=== PATIENT | female | born 1995 | race African-American/Black ===

== ENCOUNTER 2021-04-01 15:02 | Outpatient (REF) | payer OTHER, SELFPAY ==
--- NOTE | ~2021-04-01 | XR_ITS ---
EXAMINATION: XR KNEE, LEFT CLINICAL INFORMATION: Sprain of unspecified site of left knee, initial encounter. COMPARISON: None TECHNIQUE: AP, bilateral oblique, and lateral views of the left knee. FINDINGS: There is no acute fracture or malalignment. There is a small joint effusion. There is no joint space narrowing. XR/XR knee LT 4V IMPRESSION: Small joint effusion. Otherwise, unremarkable radiographs.
== END 2021-04-01 15:03 | disposition home or self-care (01) ==
LOC: HO.HMGCX 15:02
PROVIDERS: Visit Provider Hospitalist
DX: S83.92XA Sprain of unspecified site of left knee, initial encounter (principal); W19.XXXA Unspecified fall, initial encounter; Y93.9 Activity, unspecified; Y92.9 Unspecified place or not applicable; Y99.8 Other external cause status
CPT/HCPCS: 73564

== ENCOUNTER 2023-05-15 11:10 | Inpatient (IN) | payer OTHER, SELFPAY ==
--- NOTE | ~2023-05-15 | XR_ITS ---
EXAMINATION: XR CHEST CLINICAL INFORMATION: Shortness of breath COMPARISON: None available. TECHNIQUE: 2 views of the chest were obtained. FINDINGS: The lungs are expanded and clear of acute process. Heart size and pulmonary vascularity is normal. There are median sternotomy sutures from previous intervention. No gross bony abnormality seen. XR/XR chest 2V IMPRESSION: Unremarkable chest examination.
--- NOTE | ~2023-05-15 | CT_ITS ---
EXAMINATION: CT ABDOMEN AND PELVIS WITH CONTRAST CLINICAL INFORMATION: Epigastric pain. History of pancreatitis. COMPARISON: None available. TECHNIQUE: Multidetector volumetric images were obtained from the superior aspect of the liver through the pubic symphysis following administration 100 mL of Omnipaque 350 intravenous contrast. Sagittal and coronal reformatted images were obtained on the technologist's workstation. Oral contrast: No This CT examination was performed using dose optimization techniques as appropriate, variously including the following: *Automated exposure control *Adjustment of mA and/or kV according to patient size (this includes techniques or standardized protocols for targeted exams where dose is matched to indication/reason for exam; i.e. extremities or head) *Use of iterative reconstruction technique DLP: 718 mGy-cm FINDINGS: LUNG BASES: The visualized lung bases are unremarkable. LIVER, GALLBLADDER, AND BILIARY TREE: Diffuse low attenuation of the liver is noted and is suspicious for hepatic steatosis. Liver is normal in size and capsular contour. No intrahepatic biliary duct dilatation. Physiologically distended. No cholelithiasis identified though CT has limited sensitivity in the detection of cholelithiasis. PANCREAS: Edematous changes are noted throughout the pancreas aside from the pancreatic tail. A small quantity of peripancreatic fluid is present adjacent to the head and uncinate process of the pancreas. No pancreatic hemorrhage or areas of pancreatic necrosis identified. No dilatation of the main pancreatic duct noted. Normal intraluminal opacification identified within the splenic vein and portal venous system. Mild inflammatory changes extend into the root of the small bowel mesentery. No pancreatic calcifications identified. Trace fluid is present in the superior aspect of the left anterior pararenal space. SPLEEN: Unremarkable. ADRENAL GLANDS: Unremarkable. KIDNEYS AND URETERS: A 7 mm rounded low-density focus is present within the posterior interpolar segment of the right kidney and is most consistent with a benign, simple cyst requiring no additional imaging follow-up. No urolithiasis identified. No hydronephrosis or perinephric inflammatory changes noted. Bilaterally symmetric nephrographic enhancement. BLADDER: Unremarkable. GASTROINTESTINAL TRACT: A cecal bascule is incidentally noted. The appendix is normal in appearance (series 5 image 43). Trace physiologic free intraperitoneal fluid is noted in the pelvic cul-de-sac. Small hiatal hernia is present. The duodenum is normal in appearance. ABDOMINAL WALL: No significant hernia is appreciated. LYMPH NODES: Normal. VASCULAR: Unremarkable. PELVIC VISCERA: Unremarkable. OSSEOUS STRUCTURES: Partial visualization is made of median sternotomy wires. CT/CT abdomen pelvis w IV con IMPRESSION: *Acute interstitial pancreatitis. Moderate interstitial inflammatory changes of the pancreas are present diffusely except for partial sparing of the pancreatic tail. Trace peripancreatic fluid is present adjacent to the head and uncinate process with minimal fluid extending into the anterior left pararenal space and mild inflammatory changes extending into the root of the small bowel mesentery. No evidence of pancreatic hemorrhage or necrosis. No biliary duct dilatation.
[2023-05-15 11:34] VITALS: BP 134/81; PULSE 95; RESP 18; TEMP 37.1; O2SAT 99; BMI 33.7
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
[2023-05-15 12:43] LABS: COVID-19 Test Negative (Negative); IDNOW Serial# 58CA691E
[2023-05-15 12:46] LABS: IDNOW Serial# 9DB6401D; Influenza A Negative (Negative); Influenza B2 Negative (Negative)
[2023-05-15 12:47] LABS: MANUAL DIFF FLAG NO
[2023-05-15] MEDS: ondansetron HCL 4 MG/2 ML VIAL IVPUSH ×2 (12:50→20:21)
[2023-05-15] MEDS: Morphine Sulfate 4 MG/ML CARTRIDGE IVPUSH ×3 (12:50→22:36)
[2023-05-15 12:53] LABS: Basophils Percent Auto 0.1 % (0-2); Eosinophils Percent Auto 0.1 % (0-4); Hematocrit 44.2 % (37.0-47.0); Imm Gran Abs Auto 0.01 X10*3/uL (0.00-0.03); Imm Gran Pct Auto 0.1 % (0.0-0.4); Lymphocytes Percent Auto 12.4 % (20-40); Mean Corpuscular HGB Conc 33.9 g/dl (31.0-35.0); Mean Corpuscular Hemoglobin 34.1 pg (27.0-33.0); Mean Corpuscular Volume 100.5 fL (80.0-98.0); Mean Platelet Volume 9.3 fL (9.4-12.3); Monocytes Absolute Auto 0.3 X10*3/uL (0.1-1.2); Monocytes Percent Auto 3.3 % (2-11); Neutrophils Absolute Auto 6.4 x10*3/uL (2.0-8.3); Platelet Count 282 X10*3/uL (160-400); Red Cell Distribution Width 16.4 % (11.0-16.0); White Blood Count 7.7 X10*3/uL (4.8-10.8)
[2023-05-15] MEDS: Thiamine HCL 200 MG in 0.9 % Sodium Chloride 100 ML 204 MG IV (12:53)
[2023-05-15] MEDS: Lactated Ringers 1,000 ML 999 ML IV (12:54)
[2023-05-15 13:06] LABS: Ethanol 138 mg/dL; Lactate Dehydrogenase 372 U/L (122-220); Magnesium 1.6 mg/dL (1.6-2.6)
[2023-05-15 13:12] LABS: Alanine Aminotransferase 43 U/L (0-31); Albumin Level 4.8 g/dL (3.5-5.0); Alkaline Phosphatase 76 U/L (39-117); Anion Gap 25 (12-20); Aspartate Amino Transferase 67 U/L (5-31); Bilirubin Total 0.7 mg/dL (0.0-1.0); Blood Urea Nitrogen 8 mg/dL (9-16); Calcium 9.4 mg/dL (8.4-10.2); Carbon Dioxide 21 mmol/L (22-29); Chloride 105 mmol/L (96-108); Creatinine Clr Calc Pharmacy 114.7; Estimated Glomerular Filt Rate > 60; Glucose Random 81 mg/dL (60-115); Potassium 3.6 mmol/L (3.3-5.1); Sodium 147 mmol/L (135-145); Total Protein 8.9 g/dL (6.5-8.0)
[2023-05-15 13:20] LABS: Lipase 548 U/L (8-78)
[2023-05-15] MEDS: Magnesium Sulfate/H2O 2 GM/50 ML PIGGYBACK IV (13:56)
[2023-05-15 14:15] LABS: HCG Quantitative < 2 mIU/mL
[2023-05-15] MEDS: iohexoL 350 MG/ML 100 ML INFUS..BTL 85 ML IV (15:15)
[2023-05-15 15:26] VITALS: BP 145/76; PULSE 79; RESP 18; TEMP 36.6; O2SAT 99
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
[2023-05-15 15:38] LABS: Appearance Urine Clear; Color Urine Yellow; Glucose Urine UA Negative (Negative); Leukocyte Esterase Urine Negative (Negative); Nitrite Urine Negative (Negative); Specific Gravity - Urine >= 1.030 (1.005-1.025); UMIC TRIGGER UACC YES; Urine Blood Moderate (2+) (Negative); Urine Ketones 80 mg/dL (Negative); Urine Pregnancy NEGATIVE (NEGATIVE); Urine Protein 30 (1+) mg/dL (Neg-Trace)
[2023-05-15 15:39] LABS: UPreg QC Valid YES
[2023-05-15] MEDS: 0.9 % Sodium Chloride 1,000 ML 200 ML IVCONT ×2 (16:18→20:25)
[2023-05-15] MEDS: 0.9 % Sodium Chloride Flush 3 ML SYRINGE IVFLUSH (16:19)
[2023-05-15 16:22] LABS: Bacteria Urine Trace (None Seen); Hyaline Casts Urine 0-2 /LPF (0-2); RBC Urine 0-2 /HPF (0-2); WBC Urine 0-5 /HPF (0-5)
--- NOTE | 2023-05-15 16:39 | PC.NURSE ---
Assumed care of pt at 15:00, laying in bed resp even and unlabored. Offers no complaints at this time. Awaiting bed assignement.
[2023-05-15 16:44] VITALS: BP 146/83; PULSE 98; RESP 16; TEMP 36.8; O2SAT 98
--- NOTE | 2023-05-15 16:57 | PC.NURSE ---
Report completed for xfer to floor. Primary nurse: Digna.
--- NOTE | 2023-05-15 17:35 | PHA.MEDREC ---
Pharmacy Consult ? Medication Reconciliation Pharmacy has completed the medication reconciliation.
[2023-05-15 18:02] VITALS: BP 136/92; PULSE 99; RESP 20; TEMP 36.9; O2SAT 99
[2023-05-15] MEDS: Enoxaparin Sodium 40 MG/0.4 ML SYRINGE SUBCUT (18:19)
[2023-05-15] MEDS: Morphine Sulfate 2 MG/ML CARTRIDGE IVPUSH (19:06)
--- NOTE | 2023-05-15 20:28 | PC.NURSE ---
patient reported vomiting yellow liquid into the sink,medicated with Zofran,sleeping at present
[2023-05-15 23:06] VITALS: RESP 18
[2023-05-16] VITALS (7 sets, daily range): BP systolic 139–158; BP diastolic 70–99; PULSE 85–97; RESP 16–20; TEMP 36.3–36.8; O2SAT 96–98
[2023-05-16] MEDS: Morphine Sulfate 4 MG/ML CARTRIDGE IVPUSH ×6 (01:44→21:10)
[2023-05-16] MEDS: 0.9 % Sodium Chloride 1,000 ML 200 ML IVCONT ×5 (01:48→22:52)
[2023-05-16 05:48] LABS: Hematocrit 36.2 % (37.0-47.0); Hemoglobin 12.2 g/dl (12.0-16.0); Mean Corpuscular HGB Conc 33.7 g/dl (31.0-35.0); Mean Corpuscular Hemoglobin 34.4 pg (27.0-33.0); Mean Platelet Volume 9.9 fL (9.4-12.3); Platelet Count 203 X10*3/uL (160-400); Red Blood Count 3.55 X10*6/uL (4.20-5.50); Red Cell Distribution Width 15.9 % (11.0-16.0); White Blood Count 4.8 X10*3/uL (4.8-10.8)
[2023-05-16 06:20] LABS: Lactate Dehydrogenase 298 U/L (122-220)
[2023-05-16 06:21] LABS: Anion Gap 22 (12-20); Blood Urea Nitrogen 6 mg/dL (9-16); Calcium 8.9 mg/dL (8.4-10.2); Carbon Dioxide 21 mmol/L (22-29); Chloride 105 mmol/L (96-108); Creatinine Clr Calc Pharmacy 126.2; Estimated Glomerular Filt Rate > 60; Glucose Random 74 mg/dL (60-115); Potassium 3.3 mmol/L (3.3-5.1); Sodium 145 mmol/L (135-145)
[2023-05-16] MEDS: Thiamine HCL 100 MG TABLET PO (09:55)
[2023-05-16] MEDS: Folic Acid 1 MG TABLET PO (09:55)
[2023-05-16] MEDS: ondansetron HCL 4 MG/2 ML VIAL IVPUSH (09:58)
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
--- NOTE | 2023-05-16 15:57 | MHC.CM.PN ---
PT REPORTS SHE LIVES ALONE AND IS INDEPENDENT WITH CARE SHE HAS NO DME AND NO SERVICES SHE DECLINES TO COMPLETE A HCP SHE REPORTS HER PCP IS LUIS HANSON DCP: HOME NO SERVICES VIA PRIVATE TRANSPORT
[2023-05-16] MEDS: Enoxaparin Sodium 40 MG/0.4 ML SYRINGE SUBCUT (16:23)
[2023-05-16] MEDS: Nicotine 14 MG PATCH.TD24 TRANSDERMA (21:18)
[2023-05-17] MEDS: Morphine Sulfate 4 MG/ML CARTRIDGE IVPUSH ×4 (00:32→09:29)
[2023-05-17] MEDS: 0.9 % Sodium Chloride 1,000 ML 200 ML IVCONT ×2 (03:32→09:01)
[2023-05-17 06:18] LABS: Anion Gap 14 (12-20); Blood Urea Nitrogen < 3 mg/dL (9-16); Calcium 7.9 mg/dL (8.4-10.2); Carbon Dioxide 25 mmol/L (22-29); Chloride 102 mmol/L (96-108); Creatinine Clr Calc Pharmacy 155.6; Estimated Glomerular Filt Rate > 60; Glucose Random 77 mg/dL (60-115); Potassium 2.8 mmol/L (3.3-5.1); Sodium 138 mmol/L (135-145)
--- NOTE | 2023-05-17 06:31 | PC.NURSE ---
Lab called with critical K+ 2.8 Dr.Gomez Hanna notified ordered 40meq po K+ now.
[2023-05-17] MEDS: Potassium Chloride Packet 20 MEQ PACKET 40 MEQ PO ×2 (06:36→08:47)
[2023-05-17 07:28] VITALS: BP 144/89; PULSE 110; RESP 16; TEMP 36.3; O2SAT 96
[2023-05-17] MEDS: Folic Acid 1 MG TABLET PO (08:47)
[2023-05-17] MEDS: Thiamine HCL 100 MG TABLET PO (08:47)
[2023-05-17] MEDS: Nicotine 14 MG PATCH.TD24 TRANSDERMA (08:48)
--- NOTE | 2023-05-17 10:37 | MHC.CM.PN ---
EMR reviewed. Per MD rounds patient is not medically cleared for dc. CM will continue to follow.
[2023-05-17 11:50] LABS: Potassium 3.5 mmol/L (3.3-5.1)
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
[2023-05-17] MEDS: HYDROmorphone HCl 1 MG/ML SYRINGE 0.75 MG IVPUSH ×4 (12:07→21:33)
[2023-05-17 15:05] VITALS: BP 155/98; PULSE 84; RESP 18; TEMP 36.1; O2SAT 96
[2023-05-17] MEDS: Enoxaparin Sodium 40 MG/0.4 ML SYRINGE SUBCUT (15:32)
[2023-05-17] MEDS: 0.9 % Sodium Chloride 1,000 ML 125 ML IVCONT (21:36)
[2023-05-17 23:20] VITALS: BP 155/100; PULSE 78; RESP 18; TEMP 36.4; O2SAT 98
[2023-05-18] MEDS: HYDROmorphone HCl 1 MG/ML SYRINGE 0.75 MG IVPUSH ×8 (00:31→23:07)
[2023-05-18] MEDS: 0.9 % Sodium Chloride 1,000 ML 125 ML IVCONT ×3 (04:55→19:18)
[2023-05-18 06:52] LABS: Anion Gap 12 (12-20); Blood Urea Nitrogen < 3 mg/dL (9-16); Calcium 8.8 mg/dL (8.4-10.2); Carbon Dioxide 26 mmol/L (22-29); Chloride 103 mmol/L (96-108); Creatinine Clr Calc Pharmacy 158.4; Estimated Glomerular Filt Rate > 60; Glucose Random 109 mg/dL (60-115); Potassium 4.1 mmol/L (3.3-5.1); Sodium 137 mmol/L (135-145)
[2023-05-18 07:14] VITALS: BP 150/100; PULSE 88; RESP 18; TEMP 36.6; O2SAT 97
[2023-05-18] MEDS: Nicotine 14 MG PATCH.TD24 TRANSDERMA (09:38)
[2023-05-18] MEDS: Thiamine HCL 100 MG TABLET PO (09:40)
[2023-05-18] MEDS: Folic Acid 1 MG TABLET PO (09:40)
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
--- NOTE | 2023-05-18 09:53 | P.CDIM_ITS ---
PROVIDER RESPONSE TEXT: To clarify, the appropriate diagnosis supported by the clinical indicators: Hypokalemia: acute QUERY TEXT: PHYSICIAN'S DOCUMENTATION REQUEST Date of Query: 05/17/2023 12:17 PM EST Patient Name: Tia Lafleur Admit Date: 05/15/2023 Dear Gloria Pizarro, A review of the medical record indicates additional documentation may be needed. Please review below and update the documentation accordingly. Clinical Indicators: LAB FINDINGS: potassium 2.8 L Klor-Con Based on the above, is there a diagnosis that correlates with these lab findings: Hypokalemia resolved, possible, probable etc. Labs indicate a diagnosis of (please specify) Other (explain) Clinically unable to determine (explain) Thank you, Oneyda De La Paz, CCS, CDIS Use of terms such as suspected, likely, concern for, or probable (associated with a specific diagnosi s that is being evaluated, monitored, or treated as if it exists) are acceptable and can be coded in the inpatient se tting, when documented at the time of discharge. Please use your independent medical judgment in providing your response. THIS QUERY IS PART OF THE PERMANENT MEDICAL RECORD
--- NOTE | 2023-05-18 11:53 | MHC.CM.PN ---
PCP is Dr. Ankit Butler
[2023-05-18 15:12] VITALS: BP 138/90; PULSE 82; RESP 18; TEMP 36.4; O2SAT 96
[2023-05-18] MEDS: Enoxaparin Sodium 40 MG/0.4 ML SYRINGE SUBCUT (15:52)
[2023-05-18] MEDS: ondansetron HCL 4 MG/2 ML VIAL IVPUSH (19:26)
[2023-05-18 19:56] VITALS: BP 144/96; PULSE 90; RESP 20; TEMP 36.4; O2SAT 97
[2023-05-18 23:42] VITALS: BP 149/77; PULSE 95; RESP 16; TEMP 36.4; O2SAT 95
[2023-05-19] MEDS: HYDROmorphone HCl 1 MG/ML SYRINGE 0.75 MG IVPUSH ×6 (02:04→22:53)
[2023-05-19] MEDS: 0.9 % Sodium Chloride 1,000 ML 125 ML IVCONT ×3 (02:04→18:12)
[2023-05-19 07:25] VITALS: BP 133/86; PULSE 67; RESP 18; TEMP 36.9; O2SAT 99
[2023-05-19 07:51] LABS: Anion Gap 11 (12-20); Blood Urea Nitrogen < 3 mg/dL (9-16); Calcium 8.8 mg/dL (8.4-10.2); Carbon Dioxide 29 mmol/L (22-29); Chloride 102 mmol/L (96-108); Creatinine Clr Calc Pharmacy 158.4; Estimated Glomerular Filt Rate > 60; Glucose Random 91 mg/dL (60-115); Potassium 3.1 mmol/L (3.3-5.1); Sodium 139 mmol/L (135-145)
[2023-05-19] MEDS: Folic Acid 1 MG TABLET PO (08:21)
[2023-05-19] MEDS: Nicotine 14 MG PATCH.TD24 TRANSDERMA (08:21)
[2023-05-19] MEDS: Thiamine HCL 100 MG TABLET PO (08:21)
[2023-05-19 08:22] VITALS: RESP 19
[2023-05-19] MEDS: ondansetron HCL 4 MG/2 ML VIAL IVPUSH (08:22)
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
[2023-05-19] MEDS: Potassium Chloride ER 20 MEQ TAB.ER.PRT 40 MEQ PO (09:38)
--- NOTE | 2023-05-19 10:47 | MHC.CM.PN ---
EMR reviewed. Per MD rounds patient is not medically cleared for dc at this time, pain not well controlled. Plan remains home self care. CM will continue to follow.
[2023-05-19] MEDS: oxyCODONE HCl Immed Release 5 MG TABLET PO ×2 (10:58→15:35)
[2023-05-19 15:17] VITALS: BP 149/100; PULSE 90; RESP 18; TEMP 36.6; O2SAT 99
[2023-05-19] MEDS: Enoxaparin Sodium 40 MG/0.4 ML SYRINGE SUBCUT (16:36)
[2023-05-19 19:11] VITALS: BP 143/95; PULSE 75; RESP 18; TEMP 36.4; O2SAT 99
[2023-05-19] MEDS: 0.9 % Sodium Chloride Flush 3 ML SYRINGE IVFLUSH (22:58)
[2023-05-19 23:38] VITALS: BP 137/86; PULSE 84; RESP 16; TEMP 36; O2SAT 99
[2023-05-20] MEDS: HYDROmorphone HCl 1 MG/ML SYRINGE 0.75 MG IVPUSH ×2 (02:41→05:29)
[2023-05-20 07:26] VITALS: BP 142/112; PULSE 98; RESP 20; TEMP 36; O2SAT 99
[2023-05-20] MEDS: oxyCODONE HCl Immed Release 5 MG TABLET PO (07:43)
[2023-05-20] MEDS: Nicotine 14 MG PATCH.TD24 TRANSDERMA (07:43)
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
--- NOTE | 2023-05-20 10:13 | MHC.CM.PN ---
Patient dc'd home self care before this CM was able to see her.
== END 2023-05-20 08:03 | disposition home or self-care (01) | DRG 282 ==
LOC: HO.ED 14:50 → HO.EDOVER 16:02 → HO.S3 16:24
PROVIDERS: Internal Medicine; Nurse Practitioner Family; Admitting Provider Student in an Organized Health Care Education/Training Program; Emergency Provider Emergency Medicine; PCP Internal Medicine; Visit Provider Internal Medicine
DX: K85.20 Alcohol induced acute pancreatitis without necrosis or infection (principal); E87.0 Hyperosmolality and hypernatremia; F17.210 Nicotine dependence, cigarettes, uncomplicated; E87.6 Hypokalemia; E86.0 Dehydration; F10.10 Alcohol abuse, uncomplicated; Z20.822 Contact with and (suspected) exposure to COVID-19; Z71.6 Tobacco abuse counseling; Y90.6 Blood alcohol level of 120-199 mg/100 ml; Z79.899 Other long term (current) drug therapy
CPT/HCPCS: 36415; 71046; 74177; 80048; 80053; 80307; 81001; 81025; 83615; 83690; 83735; 84132; 84702; 85025; 85027; 87502; 87635; 99285; J1170; J1650; J2270; J2405; J3411; J3475; J7120; Q9967

== ENCOUNTER → 2023-05-15 15:28 | Outpatient (BNV) | payer OTHER, SELFPAY | PROVIDERS: Admitting Provider Student in an Organized Health Care Education/Training Program; Emergency Provider Emergency Medicine; Visit Provider Student in an Organized Health Care Education/Training Program | DX: K85.20 Alcohol induced acute pancreatitis without necrosis or infection (principal); E87.0 Hyperosmolality and hypernatremia; E87.6 Hypokalemia | CPT/HCPCS: 99223; 99232; 99238 ==

== ENCOUNTER 2023-07-07 20:53 | Inpatient (IN) | payer OTHER, SELFPAY ==
--- NOTE | ~2023-07-07 | XR_ITS ---
EXAMINATION: XR CHEST CLINICAL INFORMATION: Chest pain COMPARISON: 05/15/2023 TECHNIQUE: Frontal view of the chest was obtained. FINDINGS: Status post median sternotomy. No other significant abnormality is noted involving the heart, lungs, mediastinum, bony thorax or soft tissues. XR/XR chest 1V IMPRESSION: Unremarkable examination.
--- NOTE | ~2023-07-07 | CT_ITS ---
EXAMINATION: CT ABDOMEN AND PELVIS WITHOUT CONTRAST CLINICAL INFORMATION: Abdominal pain and vomiting. COMPARISON: 05/15/2023 TECHNIQUE: Multidetector volumetric imaging was performed from the superior aspect of the liver through the pubic symphysis. Sagittal and coronal reformatted images were obtained on the technologist's workstation. This CT examination was performed using dose optimization techniques as appropriate, variously including the following: *Automated exposure control *Adjustment of mA and/or kV according to patient size (this includes techniques or standardized protocols for targeted exams where dose is matched to indication/reason for exam; i.e. extremities or head) *Use of iterative reconstruction technique DLP: 673 mGy-cm FINDINGS: LUNG BASES: The visualized lung bases are unremarkable. LIVER, GALLBLADDER, AND BILIARY TREE: The liver is of significant diminished attenuation similar to previous. No significant focal liver lesions are seen. There is no intrahepatic biliary duct dilatation. The gallbladder is unremarkable with no evidence of radiopaque gallstones, gallbladder wall thickening, or obvious pericholecystic inflammatory changes. PANCREAS: There is significant peripancreatic infiltration/fluid and heterogeneous enhancement of the pancreatic parenchyma. SPLEEN: Unremarkable. ADRENAL GLANDS: Unremarkable. KIDNEYS AND URETERS: The kidneys are normal in size, shape, and attenuation. No hydronephrosis, hydroureter, or calculi seen. No perinephric stranding. BLADDER: Unremarkable. GASTROINTESTINAL TRACT: The small and large bowel are unremarkable. The appendix is unremarkable. ABDOMINAL WALL: No significant hernia is appreciated. LYMPH NODES: Normal. VASCULAR: Unremarkable. PELVIC VISCERA: Unremarkable. OSSEOUS STRUCTURES: There appears to be a central disc protrusion at L5-S1 CT/CT abdomen pelvis wo IV con IMPRESSION: 1. Findings consistent with acute pancreatitis. 2. Severe hepatic steatosis. Fleischner guidelines were followed.
--- NOTE | 2023-07-07 20:55 | ECG_ITS ---
Test Reason : CHEST PAIN Blood Pressure : / mmHG Vent. Rate : 092 BPM Atrial Rate : 092 BPM P-R Int : 124 ms QRS Dur : 104 ms QT Int : 452 ms P-R-T Axes : 050 093 056 degrees QTc Int : 558 ms AGE AND GENDER SPECIFIC ECG ANALYSIS Normal sinus rhythm Rightward axis Non specific ST elevation in lead III Prolonged QT Abnormal ECG No previous ECGs available Referred By: Jemima Araiza Electronically Signed By:KAL JOEL MD
[2023-07-07 21:09] VITALS: BP 145/99; PULSE 99; RESP 16; TEMP 36.3; O2SAT 97; BMI 33.7
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
[2023-07-07 21:20] VITALS: BP 152/92; PULSE 84; RESP 14; TEMP 37; O2SAT 100
[2023-07-07 21:20] LABS: Glucose, Whole Blood 143 mg/dL (60-115)
[2023-07-07 21:48] LABS: MANUAL DIFF FLAG NO
[2023-07-07 21:49] LABS: Basophils Percent Auto 0.3 % (0-2); Hematocrit 46.5 % (37.0-47.0); Imm Gran Abs Auto 0.02 X10*3/uL (0.00-0.03); Imm Gran Pct Auto 0.3 % (0.0-0.4); Lymphocytes Absolute Auto 0.9 X10*3/uL (1.2-4.9); Mean Corpuscular HGB Conc 34.4 g/dl (31.0-35.0); Mean Corpuscular Hemoglobin 34.6 pg (27.0-33.0); Mean Corpuscular Volume 100.6 fL (80.0-98.0); Mean Platelet Volume 9.3 fL (9.4-12.3); Monocytes Absolute Auto 0.4 X10*3/uL (0.1-1.2); Monocytes Percent Auto 7.3 % (2-11); Neutrophils Absolute Auto 4.4 x10*3/uL (2.0-8.3); Neutrophils Percent Auto 77.1 % (45-73); Platelet Count 274 X10*3/uL (160-400); Red Blood Count 4.62 X10*6/uL (4.20-5.50); Red Cell Distribution Width 15.4 % (11.0-16.0); White Blood Count 5.7 X10*3/uL (4.8-10.8)
--- NOTE | 2023-07-07 22:03 | PC.NURSE ---
Pt ca&ox4, no signs of distress. Pt reports 10/10 mid abdm pain, sob, and chest pain with onset @ 0800 and n/v right before coming to ED. IV placed. Plan of care ongoing.
[2023-07-07 22:12] LABS: Troponin-I High Sensitivity < 2.7 ng/L (<3.5-17.0)
[2023-07-07 22:16] LABS: Alanine Aminotransferase 40 U/L (0-31); Albumin Level 3.9 g/dL (3.5-5.0); Alkaline Phosphatase 136 U/L (39-117); Anion Gap 17 (12-20); Aspartate Amino Transferase 49 U/L (5-31); Bilirubin Direct 0.4 mg/dL (0.0-0.5); Bilirubin Total 0.8 mg/dL (0.0-1.0); Blood Urea Nitrogen 3 mg/dL (9-16); Calcium 9.5 mg/dL (8.4-10.2); Carbon Dioxide 30 mmol/L (22-29); Chloride 103 mmol/L (96-108); Creatinine Clr Calc Pharmacy 106.3; Estimated Glomerular Filt Rate > 60; Glucose Random 118 mg/dL (60-115); HCG Quantitative < 2 mIU/mL; Potassium 2.9 mmol/L (3.3-5.1); Sodium 147 mmol/L (135-145); Total Protein 8.1 g/dL (6.5-8.0)
[2023-07-07 22:19] LABS: Lipase 278 U/L (8-78)
[2023-07-07] MEDS: ondansetron HCL 4 MG/2 ML VIAL IVPUSH (22:21)
[2023-07-07] MEDS: Famotidine/PF 20 MG/2 ML VIAL IVPUSH (22:21)
[2023-07-07] MEDS: Magnesium Hydrox/Alum Hydrox 30 ML ORAL.SUSP PO (22:21)
[2023-07-07] MEDS: Potassium Chloride/H20 10 MEQ/100 ML PIGGYBACK 100 MEQ IV (22:22)
--- NOTE | 2023-07-07 22:36 | PC.NURSE ---
Pt medicated per jun. Plan of care ongoing.
[2023-07-08] VITALS (8 sets, daily range): BP systolic 135–160; BP diastolic 02–98; PULSE 70–99; RESP 12–18; TEMP 36.3–37; O2SAT 96–99; BMI 33.6
[2023-07-08] MEDS: HYDROmorphone HCl 1 MG/ML SYRINGE 0.5 MG IVPUSH ×6 (01:25→22:55)
[2023-07-08 01:28] LABS: Appearance Urine Cloudy; Color Urine Dark Yellow; Glucose Urine UA Negative (Negative); Leukocyte Esterase Urine Negative (Negative); Nitrite Urine Negative (Negative); Specific Gravity - Urine 1.025 (1.005-1.025); UMIC TRIGGER UACC YES; Urine Blood Negative (Negative); Urine Ketones Trace mg/dL (Negative); Urine Protein 100 (2+) mg/dL (Neg-Trace)
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
[2023-07-08 01:36] LABS: Bacteria Urine 4+ (None Seen); RBC Urine 0-2 /HPF (0-2); Squamous Epithelial Cell Urine >20 /HPF (0-2); WBC Urine 0-5 /HPF (0-5)
[2023-07-08 01:42] LABS: C Reactive Protein 0.96 mg/dL (< or = 0.50)
[2023-07-08] MEDS: KCl 40 mEq in 5% Dex/0.45% Sod 40 MEQ/1,000 ML IV.SOLN 125 MEQ IVCONT ×3 (02:15→22:58)
[2023-07-08] MEDS: Thiamine HCL 100 MG in 0.9 % Sodium Chloride 100 ML 202 MG IV (02:44)
[2023-07-08 02:57] LABS: Troponin-I High Sensitivity < 2.7 ng/L (<3.5-17.0)
[2023-07-08 06:16] LABS: Hematocrit 41.1 % (37.0-47.0); Hemoglobin 14.2 g/dl (12.0-16.0); Mean Corpuscular HGB Conc 34.5 g/dl (31.0-35.0); Mean Corpuscular Hemoglobin 35.1 pg (27.0-33.0); Mean Corpuscular Volume 101.5 fL (80.0-98.0); Mean Platelet Volume 9.8 fL (9.4-12.3); Platelet Count 272 X10*3/uL (160-400); Red Blood Count 4.05 X10*6/uL (4.20-5.50); Red Cell Distribution Width 15.3 % (11.0-16.0); White Blood Count 7.5 X10*3/uL (4.8-10.8)
[2023-07-08 06:36] LABS: Alanine Aminotransferase 38 U/L (0-31); Albumin Level 3.3 g/dL (3.5-5.0); Alkaline Phosphatase 125 U/L (39-117); Anion Gap 14 (12-20); Aspartate Amino Transferase 51 U/L (5-31); Bilirubin Total 1.4 mg/dL (0.0-1.0); Blood Urea Nitrogen 4 mg/dL (9-16); Calcium 8.8 mg/dL (8.4-10.2); Carbon Dioxide 29 mmol/L (22-29); Chloride 102 mmol/L (96-108); Creatinine Clr Calc Pharmacy 128.1; Estimated Glomerular Filt Rate > 60; Glucose Random 97 mg/dL (60-115); Potassium 3.3 mmol/L (3.3-5.1); Sodium 142 mmol/L (135-145); Total Protein 7.1 g/dL (6.5-8.0)
--- NOTE | 2023-07-08 06:51 | PC.NURSE ---
Pt ca&ox4, no signs of distress. Pt medicated per mar. Plan of care ongoing.
--- NOTE | 2023-07-08 08:00 | PHA.MEDREC ---
Pharmacy Consult ? Medication Reconciliation Pharmacy has completed the medication reconciliation. Spoke to patient and confirmed medication list.
[2023-07-08] MEDS: Pantoprazole Sodium 40 MG/10 ML VIAL IVPUSH ×2 (08:34→20:59)
[2023-07-08] MEDS: 0.9 % Sodium Chloride Flush 3 ML SYRINGE IVFLUSH ×3 (08:34→19:27)
[2023-07-08] MEDS: Heparin Sodium,Porcine 5,000 UNIT/ML VIAL 5000 UNIT SUBCUT ×2 (08:36→17:21)
--- NOTE | 2023-07-08 08:55 | PC.NURSE ---
PT A/O X 4 NO SOB/ANILA NOTED SPEAKS IN FULL SENTENCES. #20 X 2, ONE TO THE L AC AND R AC, PATENT X 2. C/O 10 CHEST/ LOWER BACK/ABD PAIN.PT RECEIVED PAIN MED AT 0650, MED IS Q4HR. NO DISTRESS NOTED. PT APPEARS TO BE IN GOOD SPIRITS. PT AWARE OF PLAN OF CARE. WILL CONTINUE TO MONITOR.
--- NOTE | 2023-07-08 10:26 | MHC.CM.PN ---
Attempted to meet with patient in regards to discharge planning. Patient currently sleeping. No family present. Will attempt to meet with patient again. Continue to monitor for d/c needs.
[2023-07-08] MEDS: Nicotine 14 MG PATCH.TD24 TRANSDERMA (10:41)
[2023-07-08 12:29] LABS: Folate 2.8 ng/mL (> or = 4.0); Vitamin B12 1404 pg/mL (200-900)
--- NOTE | 2023-07-08 15:38 | PC.NURSE ---
patient has been resting quietly with even and unlabored respirations. no obvious signs/symptoms of distress noted. iv fluids infusing, utilized prn pain medication at this time.
--- NOTE | 2023-07-08 16:58 | PM.EVENT ---
Event Note Date of Service: 07/09/23 Event Note: This patient is seen and examined with hospitalist service this morning Seen and examined Abdominal pain somewhat improving, currently denies any nausea vomiting LFTs somewhat improving Physical exam (similar) and assessment and plan coordinated in H&P Agree with the plan in addition: Acute pancreatitis Bowel rest, PPIs, pain management and IV fluids Will continue to monitor. Time Spent With Patient Time: Total time managing care of this patient today ____ minutes.
[2023-07-08] MEDS: ondansetron HCL 4 MG/2 ML VIAL IVPUSH (17:20)
[2023-07-09] MEDS: Heparin Sodium,Porcine 5,000 UNIT/ML VIAL 5000 UNIT SUBCUT ×4 (00:32→23:46)
[2023-07-09] MEDS: HYDROmorphone HCl 1 MG/ML SYRINGE 0.5 MG IVPUSH ×6 (03:16→20:49)
[2023-07-09 03:57] VITALS: BP 133/82; PULSE 71; RESP 18; TEMP 36.3; O2SAT 98
[2023-07-09] MEDS: KCl 40 mEq in 5% Dex/0.45% Sod 40 MEQ/1,000 ML IV.SOLN 125 MEQ IVCONT ×3 (06:59→17:55)
[2023-07-09 07:01] VITALS: BP 134/86; PULSE 60; RESP 16; TEMP 36.4; O2SAT 100
[2023-07-09] MEDS: 0.9 % Sodium Chloride Flush 3 ML SYRINGE IVFLUSH ×2 (08:11→17:14)
[2023-07-09] MEDS: Nicotine 14 MG PATCH.TD24 TRANSDERMA (08:12)
[2023-07-09] MEDS: Pantoprazole Sodium 40 MG/10 ML VIAL IVPUSH ×2 (08:12→20:49)
[2023-07-09] MEDS: Thiamine HCL 100 MG in 0.9 % Sodium Chloride 100 ML 202 MG IV (08:13)
[2023-07-09] MEDS: ondansetron HCL 4 MG/2 ML VIAL IVPUSH (08:13)
[2023-07-09] MEDS: Folic Acid 1 MG TABLET PO (09:22)
--- NOTE | 2023-07-09 10:50 | MHC.CM.PN ---
EMR REVIEWED, PT ADMITTED W/ACUTE PANCREATITIS, ANTIC PT WILL NEED RECOVERY TEAM PRIOR TO DC. CM MET W/PT WHO REPORTS SHE LIVES ALONE, IS FULLY INDEP W/CARE, DENIES USE OF DME/SERVICES AND GOAL FOR DC IS HOME W/ASSISTANCE W/TRANSPORT, PT WILL UTILIZE [facility] SHUTTLE VS [facility]BER IF W/E OR AFTER 2:30PM. PT VERIFIES PCP ON FILE IS CORRECT AND HER SISTER MIKEY CHAO (NUMER ON FILE), COPY HAS BEEN REQUESTED, CM UNSURE IF PT IS RELIABLE HISTORIAN HOWEVER DECLINES TO COMPLETE A NEW HCP.
--- NOTE | 2023-07-09 12:24 | HO.PM.IMPN ---
Subjective Subjective Date of Service: 07/09/23 Interval History: Acute alcoholic pancreatitis Review of Systems Patient has significant pain, unable to tolerate diet. Has some nausea but no vomiting today. No fever Physical Exam Vital Signs: Vital Signs: Last Vital Signs Temp 97.5 F 07/09/23 07:01 Pulse 60 07/09/23 07:01 Resp 16 07/09/23 07:01 BP 134/86 07/09/23 07:01 Pulse Ox 100 07/09/23 07:01 O2 Del Method Room Air 07/09/23 07:01 BMI result Body Mass Index 33.6 Appearance: Alert.? Oriented X3.? cvs: rrr, [id number] , no murmur res: clear to auscultation ,no rhonchii or wheezing abd: no rebound or guarding ,Epigastric tenderness similar , bs present. ext pulses present , no cyanosis . neuro: axo3 , nonfocal. Objective Data Active Medications Folic Acid (Folic Acid 1 Mg Tablet) 1 mg PO DAILY [facility] Last Admin: 07/09/23 09:22 Dose: 1 mg Documented By: BRIANA Heparin Sodium (Porcine) (Heparin Sodium,Porcine 5,000 Unit/Ml Vial) 5,000 unit SUBCUT Q8H [facility] Last Admin: 07/09/23 08:12 Dose: 5,000 unit Documented By: BRIANA Hydromorphone HCl (Hydromorphone Hcl 1 Mg/Ml Syringe) 0.5 mg IVPUSH Q3H PRN; Protocol PRN Reason: Pain, Severe (Pain Scale 7-10) Last Admin: 07/09/23 10:45 Dose: 0.5 mg Documented By: BRIANA Potassium Chloride/Dextrose/Sod Cl (Kcl 40 Meq In 5% Dex/0.45% Sod) 40 meq in 1,000 mls @ 125 mls/hr IVCONT .Q8H [facility] Last Admin: 07/09/23 12:08 Dose: 125 mls/hr Documented By: BRIANA Thiamine HCl 100 mg/ Sodium (Chloride) 101 mls @ 202 mls/hr IV DAILY [facility] Stop: 07/10/23 09:29 Last Infusion: 07/09/23 08:45 Dose: Infused Documented By: BRIANA Nicotine (Nicotine 14 Mg Patch.Td24) 14 mg TRANSDERMA DAILY [facility] Last Admin: 07/09/23 08:12 Dose: 14 mg Documented By: BRIANA Ondansetron HCl (Ondansetron Hcl 4 Mg/2 Ml Vial) 4 mg IVPUSH Q6H PRN PRN Reason: Nausea and Vomiting Last Admin: 07/09/23 08:13 Dose: 4 mg Documented By: BRIANA Pantoprazole Sodium (Pantoprazole Sodium 40 Mg/10 Ml Vial) 40 mg IVPUSH Q12H [facility] Last Admin: 07/09/23 08:12 Dose: 40 mg Documented By: BRIANA Sodium Chloride (0.9 % Sodium Chloride Flush 3 Ml Syringe) 3 ml IVFLUSH QSHIFT [facility] Last Admin: 07/09/23 08:11 Dose: 3 ml Documented By: BRIANA Labs 07/08/23 05:23 07/08/23 05:23 Labs: Laboratory Results - last 24 hr 07/08/23 11:19 Vitamin B12 1404 H Folate 2.8 L Assessment and Plan (1) Intractable vomiting: Status: Acute Assessment and Plan: 28 years old woman admitted with: Acute alcoholic pancreatitis . abd pain similar ,can not tolerate food. Keep NPO. Continue IV fluids. Pain control with Dilaudid IV as needed. Protonix 40 mg IV every 12 hours,Antiemetic prn. Patient encouraged to obtained from alcohol consumption. addiction consult Elevated transaminases and alk-phos + normal bilirubin. seem similar -possible Secondary to alcohol abuse. Hypokalemia secondary to vomiting. Replete as needed. Continue to monitor potassium level. Hypernatremia. Continue IV fluids: D5/0.45SS/KCl 40 mEq. Continue to monitor sodium level. Alcohol abuse. [facility] protocol. Thiamine 100 mg IV daily. Start folic acid, multivitamin and magnesium when able. Tobacco smoking. Tobacco cessation education. Obesity. BMI 33.7 kg/m2. Weight loss. DVT prophylaxis: Heparin ongoing hospitalization for acute pancreatitis treatment with IV fluids and adequate pain control,unable to take po . Patient will also require close monitoring of symptoms, vital signs and blood workup. Quality Stroke Does the patient have a stroke diagnosis?: No VTE Prior VTE?: No VTE Risk Level:: Medical - moderate - high VTE Device Contraindication: Treatment Not Indicated VTE Drug Contraindication: N/A - Med Ordered
[2023-07-09 15:31] VITALS: BP 140/84; PULSE 75; RESP 20; TEMP 36.2; O2SAT 98
--- NOTE | 2023-07-09 16:01 | MHC.RECOVRN ---
Met with pt in 360-1 after consult placed to Addiction Medicine for Alcohol use.? Chart review completed and received report from floor nurse Jabari. Pt had presented to the ED for severe abd. Pain, chest pain and SOB since the AM.; She was sent to ED following an EKG appt at which she vomited.? ??Pt was admitted to the floor for acute pancreatitis treatment and symptom monitoring.? Upon assessment pt is sleeping in bed but easily arouses.? She continues to experience abdominal pain and nausea which is well managed on current medications.? Her Dilaudid order was just increased to Q 3 hours PRN.? No W/D signs observed or reported.? Per nursing her last CIWA score was a 0.? Pt reports that she has always drank since she was able but that she recently had a large increase over the last week due to the recent loss of her mother and sister just over the last month.? She reports drinking wine coolers and whiskey daily but did not quantify amount.? Her last drink was just before her ER visit.? She recognizes it as a problem especially effecting her physical health.? Her family is aware that she is trying to stop drinking and is supportive.? Pt is not interested in MANAV treatment.? She is more interested in CBT/group interventions to decrease/stop her drinking.? ??T/W provided pt with education and materials on community resources to fit her plan.? She was going to nap after our visit but will review the material and T/W will check in with pt. tomorrow for questions/concerns. Report to ACS team and pt?s nurse Jabari.? ?? T/W available for further questions/concerns.?? Will continue to support pt. until D/C from facility.
[2023-07-09 19:33] VITALS: BP 146/96; PULSE 87; RESP 18; TEMP 36.1; O2SAT 100
[2023-07-09] MEDS: HYDROmorphone HCl 0.5 MG/0.5 ML SYRINGE IVPUSH (23:43)
[2023-07-10] MEDS: HYDROmorphone HCl 0.5 MG/0.5 ML SYRINGE IVPUSH ×7 (02:37→21:11)
[2023-07-10] MEDS: ondansetron HCL 4 MG/2 ML VIAL IVPUSH ×2 (02:45→12:21)
[2023-07-10 03:27] VITALS: BP 130/83; PULSE 70; RESP 16; TEMP 36; O2SAT 98
[2023-07-10 07:39] VITALS: BP 139/72; PULSE 65; RESP 16; TEMP 36.5; O2SAT 98
[2023-07-10] MEDS: Pantoprazole Sodium 40 MG/10 ML VIAL IVPUSH ×2 (09:28→21:12)
[2023-07-10] MEDS: 0.9 % Sodium Chloride Flush 3 ML SYRINGE IVFLUSH (09:28)
[2023-07-10] MEDS: Nicotine 14 MG PATCH.TD24 TRANSDERMA (09:29)
[2023-07-10] MEDS: Folic Acid 1 MG TABLET PO (09:29)
[2023-07-10] MEDS: Heparin Sodium,Porcine 5,000 UNIT/ML VIAL 5000 UNIT SUBCUT ×2 (09:33→18:11)
[2023-07-10] MEDS: Thiamine HCL 100 MG in 0.9 % Sodium Chloride 100 ML 202 MG IV (09:34)
--- NOTE | 2023-07-10 14:00 | P.PNIM_ITS ---
Subjective Subjective Date of Service: 07/10/23 Interval History: Acute alcoholic pancreatitis Review of Systems Patient has significant pain, unable to tolerate diet. Has some nausea but small episode vomiting today. No fever Physical Exam 2 Vital Signs: Vital Signs: Last Vital Signs Temp 97.7 F 07/10/23 07:39 Pulse 65 07/10/23 07:39 Resp 16 07/10/23 07:39 BP 139/72 07/10/23 07:39 Pulse Ox 98 07/10/23 07:39 O2 Del Method Room Air 07/10/23 07:39 BMI result Body Mass Index 33.6 Appearance: Alert.? Oriented X3.? cvs: rrr, [id number] , no murmur res: clear to auscultation ,no rhonchii or wheezing abd: no rebound or guarding,epigasrtic /left upper abd pain similar, bs present. ext pulses present , no cyanosis . neuro: axo3 , nonfocal. Objective Data Active Medications Folic Acid (Folic Acid 1 Mg Tablet) 1 mg PO DAILY [facility] Last Admin: 07/10/23 09:29 Dose: 1 mg Documented By: JENNIFER Heparin Sodium (Porcine) (Heparin Sodium,Porcine 5,000 Unit/Ml Vial) 5,000 unit SUBCUT Q8H [facility] Last Admin: 07/10/23 09:33 Dose: 5,000 unit Documented By: JENNIFER Hydromorphone HCl (Hydromorphone Hcl 0.5 Mg/0.5 Ml Syringe) 0.5 mg IVPUSH Q3H PRN; Protocol PRN Reason: Pain, Severe (Pain Scale 7-10) Last Admin: 07/10/23 12:20 Dose: 0.5 mg Documented By: JENNIFER Nicotine (Nicotine 14 Mg Patch.Td24) 14 mg TRANSDERMA DAILY [facility] Last Admin: 07/10/23 09:29 Dose: 14 mg Documented By: JENNIFER Ondansetron HCl (Ondansetron Hcl 4 Mg/2 Ml Vial) 4 mg IVPUSH Q6H PRN PRN Reason: Nausea and Vomiting Last Admin: 07/10/23 12:21 Dose: 4 mg Documented By: JENNIFER Pantoprazole Sodium (Pantoprazole Sodium 40 Mg/10 Ml Vial) 40 mg IVPUSH Q12H [facility] Last Admin: 07/10/23 09:28 Dose: 40 mg Documented By: JENNIFER Sodium Chloride (0.9 % Sodium Chloride Flush 3 Ml Syringe) 3 ml IVFLUSH QSHIFT [facility] Last Admin: 07/10/23 09:28 Dose: 3 ml Documented By: JENNIFER Labs 07/08/23 05:23 07/08/23 05:23 Assessment and Plan (1) Folic acid deficiency: Status: Acute (2) Elevated LFTs: Status: Acute (3) Hypernatremia: Status: Acute (4) Acute hypokalemia: Status: Acute Plan 28 years old woman admitted with: Acute alcoholic pancreatitis . abd pain similar ,can not tolerate food. Continue IV fluids. try full liquid, Pain control with Dilaudid IV as needed. Protonix 40 mg IV every 12 hours,Antiemetic prn. Patient encouraged to obtained from alcohol consumption. addiction consult Elevated transaminases and alk-phos + normal bilirubin. seem similar -possible Secondary to alcohol abuse. Hypokalemia secondary to vomiting. Replete as needed. Continue to monitor potassium level. Hypernatremia. Continue IV fluids: D5/0.45SS/KCl 40 mEq. Continue to monitor sodium level. Alcohol abuse. CIWA protocol. Thiamine 100 mg IV daily. Start folic acid, multivitamin and magnesium when able. folic acid deficiency: continue folic acid. Tobacco smoking. Tobacco cessation education. Obesity. BMI 33.7 kg/m2. Weight loss. DVT prophylaxis: Heparin ongoing hospitalization for acute pancreatitis treatment with IV fluids and adequate pain control,unable to take po . Patient will also require close monitoring of symptoms, vital signs and blood workup. Quality Stroke Does the patient have a stroke diagnosis?: No VTE Prior VTE?: No VTE Risk Level:: Medical - moderate - high VTE Device Contraindication: Treatment Not Indicated VTE Drug Contraindication: N/A - Med Ordered
[2023-07-10 15:08] VITALS: BP 134/76; PULSE 72; RESP 16; TEMP 36.3; O2SAT 100
[2023-07-10] MEDS: Lactated Ringers 1,000 ML 100 ML IVCONT (15:20)
--- NOTE | 2023-07-10 16:42 | MHC.RECOVRN ---
Met with pt in 360-1 to follow up and provide support.? Pt resting in dark room but easily arousable. .? Pt reports feeling better, with her pain and was able to get washed up today. Continues to receive PRN Dilaudid approx Q 3 hours with good relief. CIWA this shift was a 0. Pt denies other concerns at this time.? She was not able to review material left yesterday yet as she has been resting and asks that I return tomorrow. T/w available as needed.
[2023-07-10 19:33] VITALS: BP 156/91; PULSE 79; RESP 16; TEMP 36.1; O2SAT 99
[2023-07-11] MEDS: HYDROmorphone HCl 0.5 MG/0.5 ML SYRINGE IVPUSH ×9 (00:08→23:55)
[2023-07-11] MEDS: Heparin Sodium,Porcine 5,000 UNIT/ML VIAL 5000 UNIT SUBCUT ×3 (00:09→15:43)
[2023-07-11] MEDS: Lactated Ringers 1,000 ML 100 ML IVCONT ×3 (01:24→19:57)
[2023-07-11 03:07] VITALS: BP 124/89; PULSE 82; RESP 16; TEMP 36; O2SAT 98
[2023-07-11 07:15] VITALS: BP 158/76; PULSE 83; RESP 18; TEMP 36.2; O2SAT 97
[2023-07-11] MEDS: Nicotine 14 MG PATCH.TD24 TRANSDERMA ×2 (08:45→09:34)
[2023-07-11] MEDS: Folic Acid 1 MG TABLET PO (08:45)
[2023-07-11] MEDS: Pantoprazole Sodium 40 MG/10 ML VIAL IVPUSH ×2 (08:45→21:07)
[2023-07-11] MEDS: Emtricitabin/Tenofovir 200/300 TABLET 1 TAB PO (09:34)
[2023-07-11] MEDS: ondansetron HCL 4 MG/2 ML VIAL IVPUSH (12:32)
--- NOTE | 2023-07-11 13:11 | HO.PM.IMPN ---
Subjective Subjective Date of Service: 07/11/23 Interval History: Acute alcoholic pancreatitis Review of Systems Patient has significant pain, unable to tolerate diet. has abd pain , Physical Exam Vital Signs: Vital Signs: Last Vital Signs Temp 97.1 F 07/11/23 07:15 Pulse 83 07/11/23 07:15 Resp 18 07/11/23 07:15 BP 158/76 H 07/11/23 07:15 Pulse Ox 97 07/11/23 07:15 O2 Del Method Room Air 07/11/23 07:15 BMI result Body Mass Index 33.6 Appearance: Alert.? Oriented X3.? cvs: rrr, [id number] , no murmur res: clear to auscultation ,no rhonchii or wheezing abd: no rebound or guarding,epigasrtic /left upper abd pain similar, bs present. ext pulses present , no cyanosis . neuro: axo3 , nonfocal. Objective Data Active Medications Emtricitabine/Tenofovir (Emtricitabin/Tenofovir 200/300 Tablet) 1 tab PO DAILY [facility] Last Admin: 07/11/23 09:34 Dose: 1 tab Documented By: NANCY Folic Acid (Folic Acid 1 Mg Tablet) 1 mg PO DAILY [facility] Last Admin: 07/11/23 08:45 Dose: 1 mg Documented By: NANCY Heparin Sodium (Porcine) (Heparin Sodium,Porcine 5,000 Unit/Ml Vial) 5,000 unit SUBCUT Q8H [facility] Last Admin: 07/11/23 08:45 Dose: 5,000 unit Documented By: NANCY Hydromorphone HCl (Hydromorphone Hcl 0.5 Mg/0.5 Ml Syringe) 0.5 mg IVPUSH Q3H PRN; Protocol PRN Reason: Pain, Severe (Pain Scale 7-10) Last Admin: 07/11/23 12:27 Dose: 0.5 mg Documented By: NANCY Lactated Ringer's (Lr) 1,000 mls @ 100 mls/hr IVCONT .Q10H [facility] Last Admin: 07/11/23 11:10 Dose: 100 mls/hr Documented By: NANCY Nicotine (Nicotine 14 Mg Patch.Td24) 14 mg TRANSDERMA DAILY [facility] Last Admin: 07/11/23 09:34 Dose: 14 mg Documented By: NANCY Ondansetron HCl (Ondansetron Hcl 4 Mg/2 Ml Vial) 4 mg IVPUSH Q6H PRN PRN Reason: Nausea and Vomiting Last Admin: 07/11/23 12:32 Dose: 4 mg Documented By: NANCY Pantoprazole Sodium (Pantoprazole Sodium 40 Mg/10 Ml Vial) 40 mg IVPUSH Q12H [facility] Last Admin: 07/11/23 08:45 Dose: 40 mg Documented By: NANCY Sodium Chloride (0.9 % Sodium Chloride Flush 3 Ml Syringe) 3 ml IVFLUSH QSHIFT [facility] Last Admin: 07/11/23 07:15 Dose: Not Given Documented By: NANCY Non-Admin Reason: IV Running Labs 07/08/23 05:23 07/08/23 05:23 Assessment and Plan (1) Folic acid deficiency: Status: Acute (2) Acute hypokalemia: Status: Acute (3) Hypernatremia: Status: Acute (4) Acute alcoholic pancreatitis: Status: Acute Plan 28 years old woman admitted with: Acute alcoholic pancreatitis . abd pain similar ,can not tolerate food. Continue IV fluids. try full liquid, Pain control with Dilaudid IV as needed. Protonix 40 mg IV every 12 hours,Antiemetic prn. Patient encouraged to obtained from alcohol consumption. addiction consult Elevated transaminases and alk-phos + normal bilirubin. seem similar -possible Secondary to alcohol abuse. Hypokalemia /Hypernatremia. improved with ivf and potassium replacement. Alcohol abuse. [facility] protocol. Thiamine 100 mg IV daily. Start folic acid, multivitamin and magnesium when able. folic acid deficiency: continue folic acid. Tobacco smoking. Tobacco cessation education. Obesity. BMI 33.7 kg/m2. Weight loss. DVT prophylaxis: Heparin ongoing hospitalization for acute pancreatitis treatment with IV fluids and adequate pain control,unable to take po . Patient will also require close monitoring of symptoms, vital signs and blood workup. Quality Stroke Does the patient have a stroke diagnosis?: No VTE Prior VTE?: No VTE Risk Level:: Medical - moderate - high VTE Device Contraindication: Treatment Not Indicated VTE Drug Contraindication: N/A - Med Ordered
[2023-07-11 15:08] VITALS: BP 136/87; PULSE 100; RESP 18; TEMP 36.3; O2SAT 96
[2023-07-11 19:03] VITALS: BP 131/79; PULSE 95; RESP 18; TEMP 36.2; O2SAT 98
[2023-07-11] MEDS: 0.9 % Sodium Chloride Flush 3 ML SYRINGE IVFLUSH (19:17)
--- NOTE | 2023-07-12 00:35 | PC.NURSE ---
pt c/o pain after eating the chips, notified, received once extra dose of dilaudid 0.5 mg. given by this nurse. pain controlled by 08/12. feel much better pt walked to herr way, stay awake w/phone. singing the birthday song, sounds happy. will cont monitor.
[2023-07-12] MEDS: Heparin Sodium,Porcine 5,000 UNIT/ML VIAL 5000 UNIT SUBCUT ×2 (00:58→08:29)
[2023-07-12 02:35] VITALS: BP 150/90; PULSE 89; RESP 18; TEMP 36.1; O2SAT 100
[2023-07-12] MEDS: HYDROmorphone HCl 0.5 MG/0.5 ML SYRINGE IVPUSH ×2 (03:09→06:33)
[2023-07-12] MEDS: polyethylene glycoL 3350 17 GM POWD.PACK PO (04:31)
[2023-07-12] MEDS: Lactated Ringers 1,000 ML 100 ML IVCONT (06:33)
[2023-07-12 07:19] VITALS: BP 137/86; PULSE 90; RESP 16; TEMP 36.1; O2SAT 98
[2023-07-12] MEDS: 0.9 % Sodium Chloride Flush 3 ML SYRINGE IVFLUSH (08:27)
[2023-07-12] MEDS: Nicotine 14 MG PATCH.TD24 TRANSDERMA (08:28)
[2023-07-12] MEDS: Pantoprazole Sodium 40 MG/10 ML VIAL IVPUSH (08:28)
[2023-07-12] MEDS: Folic Acid 1 MG TABLET PO (08:29)
[2023-07-12] MEDS: Emtricitabin/Tenofovir 200/300 TABLET 1 TAB PO (08:29)
[2023-07-12] MEDS: oxyCODONE HCl Immed Release 5 MG TABLET PO (08:48)
--- NOTE | 2023-07-12 10:31 | P.DS_ITS ---
DS: Providers Provider Date of Service: 07/12/23 Date of admission: 07/08/23 01:03 Date of discharge: 07/12/23 Primary care physician: Luis Butler MD Consults: 07/08/23 10:21 Addiction Medicine Routine Consulting Provider: Addiction Covering Reason for consultation: Alcohol use Has provider been notified: No Attending physician on discharge: Leighton Landa Discharging clinician: Leighton Landa DS: Diagnosis Discharge Diagnosis (1) Folic acid deficiency: Status: Acute (2) Acute hypokalemia: Status: Acute (3) Hypernatremia: Status: Acute (4) Acute alcoholic pancreatitis: Status: Acute DS: Summary Hospital Course Hospital Course: 28 years old woman with past medical history significant for alcohol abuse, alcoholic pancreatitis, splenic laceration and cardiac surgery due to trauma pre sents to the emergency department complaining of epigastric pain that started 2 days ago associated with nausea and nonbloody vomiting. Denies diarrhea, fever, chills or pain with urination She described the pain as a sharp sensation in the epigastrium radiating to the back and chest. The intensity is 12/10. Last time she drank alcohol was today. She has also a tobacco smoker -5 cigarettes/daily. She also smoke marijuana. Denies illicit drug use. She does not take medications daily. Denies history of abdominal surgeries. In the ED, she was found to have stable vital signs. Blood workup was remarkable for elevated lipase, 278. Transaminases and alk-phos are elevated. Total bilirubin is normal. There is no leukocytosis. There is hypernatremia and hypokalemia. Troponin is negative. test is negative. Abdominal pelvis CT scan showed finding consistent with acute pancreatitis and severe hepatic steatosis. CXR is unremarkable. ECG showed normal sinus rhythm (HR 92 beats per minute) and right bundle branch block. ED tx: KCl IV, Zofran 4 mg IV, Maalox 30 ml PO and famotidine 20 mg IV. Hospital course: patient was admitted for Acute alcoholic pancreatitis - started on bowel rest ,ppi,ivf,pain control ,Antiemetic prn: seems to be improved with above supportive management . Hypokalemia /Hypernatremia. hypernatremia (possible sec to decreased po intake) improved with ivf and hypokalemia improved with potassium replacement. Mild elevated Lft's -possible related to alcohol use ,moniter lft's and further management outpatient. plan: Patient was strongly advised to abstain from alcohol. Monitor LFTs, BMP. Oxycodone 5 mg q.6 hr p.r.n. for pain-limited supply given. Above management discussed with the patient in detail, she understand the plan time spent 35 min. Time Attestation Total time managing care of this patient today: 35 mintues. Discharge Coordination Time (in mins): 35 min Quality: Safe Use of Opioids Does Pt have an Active Cancer Diagnosis on the Problem List?: No Quality: Stroke Does the patient have a stroke diagnosis?: No Physical Exam Vital Signs: Vital Signs: Last Vital Signs Temp 96.9 F 07/12/23 07:19 Pulse 90 07/12/23 07:19 Resp 16 07/12/23 07:19 BP 137/86 07/12/23 07:19 Pulse Ox 98 07/12/23 07:19 O2 Del Method Room Air 07/12/23 07:19 BMI result Body Mass Index 33.6 Appearance: Alert.? Oriented X3.? cvs: rrr, [id number] , no murmur res: clear to auscultation ,no rhonchii or wheezing abd: no rebound or guarding,nt , bs present. ext pulses present , no cyanosis . neuro: axo3 , nonfocal. Discharge Plan Discharge Anticipated Discharge Date/Time: 07/12/23 10:09 Patient Disposition: Home, Self-Care Discharge Diagnosis: Acute alcoholic pancreatitis , elevated lfts, Hypokalemia /Hypernatremia. folic acid deficiency Referrals: Luis Butler MD [Primary Care Provider] - 1 Week Discharge Medications: New oxycodone 5 mg Tablet 5 mg PO Q6H PRN (Reason: Pain, Mild (Pain Scale 1-3)) Qty: 10 0RF Rx Instructions: Partial Fill upon patient request. docusate sodium [Colace] 100 mg capsule 100 mg PO DAILY PRN (Reason: constipation) Qty: 30 0RF folic acid 1 mg Tablet 1 mg PO DAILY Qty: 30 0RF omeprazole 20 mg capsule,delayed release(DR/EC) 20 mg PO DAILY Qty: 30 0RF polyethylene glycol 3350 [Miralax] 17 gram/dose powder 17 g PO DAILY PRN (Reason: constipation) Qty: 119 0RF Continued levonorgestrel-ethinyl estrad [Sronyx] 0.1-20 mg-mcg tablet 1 tab PO DAILY ibuprofen 600 mg tablet 600 mg PO Q6H PRN (Reason: pain) emtricitabine-tenofovir (TDF) 200-300 mg tablet 1 tab PO DAILY Discharge Orders: Discharge Order (Routine); Ordered 07/12/23 Ordered By: Leighton Landa Diet: Advance to usual diet Activity on Discharge: As tolerated Stand Alone Forms: Patient Portal Discharge page Print Language: Prydeinig Care Plan Goals: patient was admitted for Acute alcoholic pancreatitis - started on bowel rest ,ppi,ivf,pain control ,Antiemetic prn: seems to be improved with above supportive management . Hypokalemia /Hypernatremia. hypernatremia (possible sec to decreased po intake) improved with ivf and hypokalemia improved with potassium replacement. Mild elevated Lft's -possible related to alcohol use ,moniter lft's and further management outpatient. Health Concerns: as above. Plan of Treatment: as above. Assessment: as above.
--- NOTE | 2023-07-12 11:49 | MHC.CM.PN ---
Patient is discharged to home self care. Transportation was booked at the patients request. She declined the ride once it was set up. Patient arranged for transport home.
--- NOTE | 2023-07-12 12:40 | MHC.RECOVRN ---
Met with pt prior to dc to check in regarding resources. Pt denies questions or concerns at this time, informs t/w she plans to attend AA. Pt has ACS contact information if needed.
== END 2023-07-12 10:51 | disposition home or self-care (01) | DRG 282 ==
LOC: HO.ED 23:58 → HO.EDOVER 07-08 01:06 → HO.S3 07-08 15:50
PROVIDERS: Admitting Provider Internal Medicine; Emergency Provider Emergency Medicine; PCP Emergency Medicine; Visit Provider Internal Medicine
DX: K85.20 Alcohol induced acute pancreatitis without necrosis or infection (principal); E87.0 Hyperosmolality and hypernatremia; E87.3 Alkalosis; E87.6 Hypokalemia; E53.8 Deficiency of other specified B group vitamins; F17.210 Nicotine dependence, cigarettes, uncomplicated; F10.10 Alcohol abuse, uncomplicated; E66.9 Obesity, unspecified; Z68.33 Body mass index [BMI] 33.0-33.9, adult; Z71.6 Tobacco abuse counseling; Z79.899 Other long term (current) drug therapy
CPT/HCPCS: 36415; 71045; 74176; 80048; 80053; 80076; 81001; 82607; 82746; 82947; 83690; 84484; 84702; 85025; 85027; 86140; 93005; 99221; 99285; C9113; J1170; J1644; J2405; J3411; J3480; J7120

== ENCOUNTER → 2023-07-07 20:55 | Outpatient (BNV) | payer OTHER, SELFPAY | PROVIDERS: Admitting Provider Internal Medicine; Emergency Provider Emergency Medicine; PCP Emergency Medicine; Visit Provider Internal Medicine Cardiovascular Disease | DX: R07.9 Chest pain, unspecified (principal) | CPT/HCPCS: 93010 ==

== ENCOUNTER → 2023-07-08 01:03 | Outpatient (BNV) | payer OTHER, SELFPAY | PROVIDERS: Admitting Provider Internal Medicine; Emergency Provider Emergency Medicine; PCP Emergency Medicine; Visit Provider Internal Medicine | DX: E53.8 Deficiency of other specified B group vitamins (principal); E87.6 Hypokalemia; E87.0 Hyperosmolality and hypernatremia; K85.20 Alcohol induced acute pancreatitis without necrosis or infection | CPT/HCPCS: 99223; 99232; 99239; 99499 ==

== ENCOUNTER 2023-11-06 23:06 | Inpatient (IN) | payer OTHER, SELFPAY ==
--- NOTE | ~2023-11-06 | XR_ITS ---
EXAMINATION: XR KNEE, LEFT CLINICAL INFORMATION: Pain status post fall COMPARISON: None available. TECHNIQUE: Four views of the left knee. FINDINGS: No fracture or joint effusion. Alignment is anatomic. Joint spaces are maintained. No abnormal soft tissue calcification. XR/XR knee LT 4V IMPRESSION: Normal left knee.
--- NOTE | ~2023-11-06 | XR_ITS ---
EXAMINATION: XR KNEE, RIGHT CLINICAL INFORMATION: Pain status post fall COMPARISON: None available. TECHNIQUE: Four views of the right knee. FINDINGS: No acute fractures. Large joint effusion. Alignment is anatomic. Medial compartment arthritis. No abnormal soft tissue calcification. XR/XR knee RT 4V IMPRESSION: Large joint effusion
--- NOTE | ~2023-11-06 | CT_ITS ---
EXAMINATION: CT ABDOMEN AND PELVIS WITH CONTRAST CLINICAL INFORMATION: Reason for Exam upper abdo pain/tend / pancreatitis COMPARISON: 07/07/2023 TECHNIQUE: Multidetector volumetric images were obtained from the superior aspect of the liver through the pubic symphysis following administration 85 mL of Omnipaque 350 intravenous contrast. Sagittal and coronal reformatted images were obtained on the technologist's workstation. Oral contrast: No This CT examination was performed using dose optimization techniques as appropriate, variously including the following: *Automated exposure control *Adjustment of mA and/or kV according to patient size (this includes techniques or standardized protocols for targeted exams where dose is matched to indication/reason for exam; i.e. extremities or head) *Use of iterative reconstruction technique DLP: 717 mGy-cm FINDINGS: Suboptimal assessment in some regions due to motion artifact. LUNG BASES: The visualized lung bases are unremarkable. LIVER, GALLBLADDER, AND BILIARY TREE: The liver demonstrates hypoattenuation suspicious for steatosis. No focal hepatic lesion or biliary ductal dilatation is present. The gallbladder is unremarkable with no evidence of radiopaque gallstones, gallbladder wall thickening, or obvious pericholecystic inflammatory changes. PANCREAS: The pancreas appears edematous, and there is moderate peripancreatic stranding along with a small amount of fluid, consistent with acute pancreatitis. Several scattered hepatic calcifications are suspected to reflect underlying changes of chronic pancreatitis. No discrete peripancreatic fluid collection is seen. SPLEEN: Unremarkable. ADRENAL GLANDS: Unremarkable. KIDNEYS AND URETERS: Bilateral nephrograms are symmetric. No hydronephrosis or obstructing calculus identified. Small right renal hypodensity statistically favors a cyst; no follow-up recommended. BLADDER: Mild diffuse mural prominence, which may be due to underdistention. GASTROINTESTINAL TRACT: No evidence of bowel obstruction or significant wall thickening. The appendix is unremarkable. No free air is seen. ABDOMINAL WALL: No significant hernia is appreciated. LYMPH NODES: Normal. VASCULAR: Unremarkable. PELVIC VISCERA: Unremarkable. OSSEOUS STRUCTURES: Unremarkable. CT/CT abdomen pelvis w IV con IMPRESSION: 1. Acute pancreatitis as described above. 2. Scattered pancreatic calcifications, suspicious for underlying changes of chronic pancreatitis. 3. Hepatic steatosis.
[2023-11-06 23:08] VITALS: BP 142/66; PULSE 85; RESP 16; TEMP 36.9; O2SAT 99; BMI 35.4
--- NOTE | 2023-11-06 23:15 | ECG_ITS ---
Test Reason : abd pain Blood Pressure : / mmHG Vent. Rate : 080 BPM Atrial Rate : 080 BPM P-R Int : 124 ms QRS Dur : 124 ms QT Int : 414 ms P-R-T Axes : 046 094 052 degrees QTc Int : 477 ms Normal sinus rhythm Rightward axis Septal infarct , age undetermined Abnormal ECG When compared with ECG of 07-JUL-2023 21:03, Septal infarct is now Present QT has shortened Referred By: Generic ED Physician Electronically Signed By:Angel Arguello
--- NOTE | 2023-11-06 23:34 | MHC.EDTECH ---
PATIENT EKG TAKEN AND WAS READ BY PROVIDER ,BLOOD DRAWN AND SENT TO LAB .
[2023-11-06 23:37] LABS: Basophils Percent Auto 0.5 % (0-2); Eosinophils Percent Auto 0.2 % (0-4); Hematocrit 36.7 % (37.0-47.0); Hemoglobin 12.8 g/dl (12.0-16.0); Imm Gran Abs Auto 0.02 X10*3/uL (0.00-0.03); Imm Gran Pct Auto 0.5 % (0.0-0.4); Lymphocytes Absolute Auto 1.4 X10*3/uL (1.2-4.9); MANUAL DIFF FLAG NO; Mean Corpuscular HGB Conc 34.9 g/dl (31.0-35.0); Mean Corpuscular Hemoglobin 34.4 pg (27.0-33.0); Mean Corpuscular Volume 98.7 fL (80.0-98.0); Monocytes Absolute Auto 0.4 X10*3/uL (0.1-1.2); Monocytes Percent Auto 7.9 % (2-11); Neutrophils Absolute Auto 2.6 x10*3/uL (2.0-8.3); Neutrophils Percent Auto 58.9 % (45-73); Platelet Count 225 X10*3/uL (160-400); Red Blood Count 3.72 X10*6/uL (4.20-5.50); Red Cell Distribution Width 14.8 % (11.0-16.0); White Blood Count 4.4 X10*3/uL (4.8-10.8)
[2023-11-06 23:50] LABS: Alanine Aminotransferase 50 U/L (0-31); Albumin Level 4.2 g/dL (3.5-5.0); Alkaline Phosphatase 79 U/L (39-117); Anion Gap 17 (12-20); Aspartate Amino Transferase 65 U/L (5-31); Blood Urea Nitrogen 5 mg/dL (9-16); Calcium 9.5 mg/dL (8.4-10.2); Carbon Dioxide 25 mmol/L (22-29); Chloride 103 mmol/L (96-108); Creatinine Clr Calc Pharmacy 129.7; Estimated Glomerular Filt Rate > 60; Ethanol 49 mg/dL; Glucose Random 82 mg/dL (60-115); Lipase 95 U/L (8-78); Potassium 3.3 mmol/L (3.3-5.1); Sodium 142 mmol/L (135-145); Total Protein 7.6 g/dL (6.5-8.0)
[2023-11-07] VITALS (9 sets, daily range): BP systolic 141–158; BP diastolic 85–95; PULSE 60–85; RESP 16–20; TEMP 36.4–37.2; O2SAT 97–100; BMI 35.2
--- NOTE | 2023-11-07 01:00 | MHC.EDTECH ---
Patient said she not able to give urine sample at this time .
[2023-11-07 01:24] LABS: Troponin-I High Sensitivity < 2.7 ng/L (<3.5-17.0)
[2023-11-07 02:11] LABS: Appearance Urine Cloudy; Color Urine Dark Yellow; Glucose Urine UA Negative (Negative); Leukocyte Esterase Urine Trace (Negative); Nitrite Urine Negative (Negative); PH 7.5 (5.0-9.0); Specific Gravity - Urine 1.025 (1.005-1.025); UMIC TRIGGER UACC YES; Urine Blood Trace (Negative); Urine Ketones 15 mg/dL (Negative); Urine Protein 30 (1+) mg/dL (Neg-Trace)
[2023-11-07 02:12] LABS: UPreg QC Valid YES; Urine Pregnancy NEGATIVE (NEGATIVE)
--- NOTE | 2023-11-07 02:27 | ED.GENADULT ---
HPI - General Adult General Chief complaint: Abdominal Pain Stated complaint: chest pain and abdominal pain, SOB Time Seen by Provider: 11/07/23 02:27 History of Present Illness ED Provider: LATANYA KHAN narrative: The patient is a 28-year-old female with a history of alcoholism. She presents with a complaint of upper abdominal pain that she says has been present since yesterday afternoon and which she says is similar to previous episodes of pancreatitis. This is her chief complaint. She also has pain in her knees. She says that several days ago she fell down some stairs and injured her knees. She did not feel that she injured her head or had any loss of consciousness at the time. She has no neck pain or pain with moving her neck. Related Data Home Medications ?Medication ?Instructions ?Recorded ?Confirmed emtricitabine 200 mg-tenofovir 1 tab PO DAILY HIV Protection 05/15/23 07/08/23 disoproxil fumarate 300 mg tablet ibuprofen 600 mg tablet 600 mg PO Q6H PRN pain 05/15/23 07/08/23 levonorgestrel-ethinyl estradiol 1 tab PO DAILY 05/15/23 07/08/23 0.1 mg-20 mcg tablet (Sronyx) Previous Rx's ?Medication ?Instructions ?Recorded docusate sodium 100 mg capsule 100 mg PO DAILY PRN constipation 07/12/23 (Colace) #30 caps folic acid 1 mg tablet 1 mg PO DAILY #30 tabs 07/12/23 omeprazole 20 mg capsule,delayed 20 mg PO DAILY #30 caps 07/12/23 release oxycodone 5 mg tablet 5 mg PO Q6H PRN Pain, Mild (Pain 07/12/23 Scale 1-3) #10 tabs polyethylene glycol 3350 17 17 g PO DAILY PRN constipation 07/12/23 gram/dose oral powder (Miralax) #119 grams Allergies Allergy/AdvReac Type Severity Reaction Status Date / Time No Known Allergies Allergy Verified 11/06/23 23:12 Review of Systems Review of Systems: Yes all other systems are reviewed and are negative [facility] Past Medical History Medical History Critical polytrauma Pancreatitis Surgical History History of open heart surgery Social History Social History Household Members: None Housing: Apartment Do you presently have visiting nurse or other home services: No Alcohol intake: current Alcohol intake frequency: 0-2 drinks per day Alcohol type: hard liquor Comment: refusing alarm and camera Patient Tobacco Use Status: Current everyday Tobacco user Tobacco use type: Cigarette Cigarettes Per Day: 5 Years Smoked: 2 Smoked in Last 30 Days: Yes Second Hand Smoke Exposure: No Use of substances other than those prescribed or required for medical reasons: Yes Substance Use Type: Marijuana Substance Use Frequency: Daily Advance Directives: No Advance Directives Information Provided: No Do you have a plan to hurt others: No Plan service: No Physical Exam ED Vital Signs: Vital Signs - 24 hr 11/06/23 23:08 11/07/23 00:58 11/07/23 02:00 Temperature 98.4 F 98.0 F 98.2 F Pulse Rate 85 79 76 Respiratory Rate 16 16 16 Blood Pressure 142/66 H 141/95 H 148/86 H Pulse Oximetry 99 97 Oxygen Delivery Method Room Air Room Air Room Air 11/07/23 03:10 11/07/23 05:27 11/07/23 05:42 Temperature 97.6 F Pulse Rate 77 60 69 Respiratory Rate 16 18 16 Blood Pressure 152/92 H 150/85 H Pulse Oximetry 100 100 100 Oxygen Delivery Method Room Air Room Air Room Air BMI result Body Mass Index 35.4 Const Other: The patient is awake and alert. She is a somewhat chronically ill appearing 28-year-old. She seems uncomfortable but does not seem overtly toxic. HENMT Other: Face is symmetrical. Mucous membranes moist. Eyes Other: Pupils are round equal, conjunctivae are clear Neck Other: Moving the neck easily. Resp Effort & Inspection: normal respiratory effort Auscultation: clear to auscultation bilaterally Cardio Rate: regular rate Rhythm: regular rhythm Heart sounds: S1 normal heart sound present and S2 normal heart sound present GI Other: The abdomen is soft but quite tender in the epigastrium. Skin Other: Skin is dry and unremarkable Neuro Other: The patient is awake and alert. She seems somewhat distracted by her discomfort. Cranial nerves seem grossly intact. She moves all 4 extremities symmetrically and seems grossly neurologically intact. Extrem Other: The patient reports discomfort in both knees. I am able to put both knees through a good range of motion without apparent significant discomfort. I did not appreciate the presence of an effusion in either knee. Medications Administered Generic Name Dose Route Start Last Admin Trade Name Freq PRN Reason Stop Dose Admin Lactated Ringer's 1,000 mls @ 125 mls/hr 11/07/23 06:00 11/07/23 06:20 Lr IVCONT 125 mls/hr .Q8H MAU Administration Discontinued Medications Generic Name Dose Route Start Last Admin Trade Name Freq PRN Reason Stop Dose Admin Droperidol 1.25 mg 11/07/23 02:41 11/07/23 03:03 Droperidol 5 Mg/2 Ml Vial IVPUSH 11/07/23 02:42 1.25 mg ONCE ONE Administration Sodium Chloride 1,000 mls @ 999 mls/hr 11/07/23 02:45 11/07/23 04:30 Ns IV 11/07/23 03:45 Infused .Q1H1M MAU Infusion Iohexol 85 ml 11/07/23 03:49 11/07/23 03:50 Iohexol 350 Mg/Ml 100 Ml Infus..Btl IV 11/07/23 03:50 85 ml ONCE ONE Administration Morphine Sulfate 4 mg 11/07/23 02:41 11/07/23 03:02 Morphine Sulfate 4 Mg/Ml Cartridge IVPUSH 11/07/23 02:42 4 mg ONCE ONE Administration Protocol Morphine Sulfate 4 mg 11/07/23 05:25 11/07/23 05:38 Morphine Sulfate 4 Mg/Ml Cartridge IVPUSH 11/07/23 05:26 4 mg ONCE ONE Administration Protocol Pantoprazole Sodium 40 mg 11/07/23 02:41 11/07/23 03:03 Pantoprazole Sodium 40 Mg/10 Ml Vial IVPUSH 11/07/23 02:42 40 mg ONCE ONE Administration Medical Decision Making Medical Decision Making [facility] Narrative: The patient is a 28-year-old female with a history of alcoholism and previous episodes of alcoholic pancreatitis who presents with epigastric pain that she says is similar to previous pancreatitis. Her lipase is only 95. Nevertheless a CT scan of the abdomen and pelvis was done that showed findings consistent with acute pancreatitis. She was treated symptomatically with IV fluids, morphine, droperidol, and famotidine. Additionally the patient had x-rays of her knees. The right knee x-ray was read as showing a joint effusion. On her exam I do not appreciate the presence of a joint effusion and she seems to move both of her knees fairly well. The patient will be admitted to the hospitalist service for further management of alcoholic pancreatitis. Lab Data 11/06/23 23:31 11/06/23 23:31 Labs: Lab Results 11/06/23 11/07/23 11/07/23 Range/Units 23:31 02:00 05:36 WBC 4.4 L (4.8-10.8) X10*3/uL RBC 3.72 L (4.20-5.50) X10*6/uL Hgb 12.8 (12.0-16.0) g/dl Hct 36.7 L (37.0-47.0) % MCV 98.7 H (80.0-98.0) fL MCH 34.4 H (27.0-33.0) pg MCHC 34.9 (31.0-35.0) g/dl RDW 14.8 (11.0-16.0) % Plt Count 225 (160-400) X10*3/uL MPV 9.0 L (9.4-12.3) fL Immature Gran % (Auto) 0.5 H (0.0-0.4) % Neut % (Auto) 58.9 (45-73) % Lymph % (Auto) 32.0 (20-40) % [place] % (Auto) 7.9 (2-11) % Eos % (Auto) 0.2 (0-4) % Baso % (Auto) 0.5 (0-2) % Lymph # (Auto) 1.4 (1.2-4.9) X10*3/uL [place] # (Auto) 0.4 (0.1-1.2) X10*3/uL Eos # (Auto) 0.0 (0.0-0.4) X10*3/uL Baso # (Auto) 0.0 (0.0-0.2) X10*3/uL Abs Immat Gran (auto) 0.02 (0.00-0.03) X10*3/uL Absolute Neuts (auto) 2.6 (2.0-8.3) x10*3/uL Absolute Nucleated RBC 0.000 (0.0-0.012) X10*3/uL Nucleated RBC % (auto) 0.0 (0.0-0.2) /100WBC Sodium 142 (135-145) mmol/L Potassium 3.3 (3.3-5.1) mmol/L Chloride 103 (96-108) mmol/L Carbon Dioxide 25 (22-29) mmol/L Anion Gap 17 (12-20) BUN 5 L (9-16) mg/dL Creatinine 0.69 (0.5-1.4) mg/dL Estim Creat Clear Calc 129.7 Estimated GFR > 60 Random Glucose 82 (60-115) mg/dL Calcium 9.5 D (8.4-10.2) mg/dL Magnesium 1.9 (1.6-2.6) mg/dL Total Bilirubin 1.0 (0.0-1.0) mg/dL AST 65 H (5-31) U/L ALT 50 H (0-31) U/L Alkaline Phosphatase 79 (39-117) U/L Troponin I High Sens < 2.7 (<3.5-17.0) ng/L Total Protein 7.6 (6.5-8.0) g/dL Albumin 4.2 (3.5-5.0) g/dL Triglycerides 76 (<150) mg/dL Lipase 95 H (8-78) U/L Urine Color Dark Yellow Urine Appearance Cloudy Urine pH 7.5 (5.0-9.0) Ur Specific [place] 1.025 (1.005-1.025) Urine Protein 30 (1+) H (Neg-Trace) mg/dL Urine Glucose (UA) Negative (Negative) mg/dL Urine Ketones 15 (Negative) mg/dL Urine Blood Trace H (Negative) Urine Nitrite Negative (Negative) Ur Leukocyte Esterase Trace H (Negative) Urine RBC 6-10 H (0-2) /HPF Urine WBC 6-10 H (0-5) /HPF Ur Squamous Epith Cells >20 (0-2) /HPF Urine Bacteria 4+ (None Seen) Hyaline Casts 6-10 (0-2) /LPF Granular Casts Present Urine Test NEGATIVE (NEGATIVE) Ethyl Alcohol 49 mg/dL Discharge Plan Discharge Clinical Impression: Acute alcoholic pancreatitis Patient Disposition: Admitted As Inpatient
[2023-11-07 02:29] LABS: Bacteria Urine 4+ (None Seen); Granular Casts Urine Present; Squamous Epithelial Cell Urine >20 /HPF (0-2); UACC Culture Trigger YES
[2023-11-07 02:45] LABS: Magnesium 1.9 mg/dL (1.6-2.6)
[2023-11-07] MEDS: Morphine Sulfate 4 MG/ML CARTRIDGE IVPUSH ×6 (03:02→20:44)
[2023-11-07] MEDS: 0.9 % Sodium Chloride 1,000 ML 999 ML IV (03:02)
[2023-11-07] MEDS: Pantoprazole Sodium 40 MG/10 ML VIAL IVPUSH (03:03)
[2023-11-07] MEDS: droPERidol 5 MG/2 ML VIAL 1.25 MG IVPUSH (03:03)
[2023-11-07] MEDS: iohexoL 350 MG/ML 100 ML INFUS..BTL 85 ML IV (03:50)
[2023-11-07 05:51] LABS: Triglycerides 76 mg/dL (<150)
--- NOTE | 2023-11-07 05:57 | P.HPHOSP_ITS ---
History of Present Illness Date of Service: 11/07/23 Chief Complaint: Abdominal pain This is a 28-year-old female with pertinent history of alcohol use disorder with history of alcoholic pancreatitis, tobacco use disorder who presents to the emergency department for evaluation of abdominal pain. Patient states it started 1 day prior to presentation. She has been having epigastric pain that is intermittent and radiating to the back. It is been progressive for the last 1 day and without any relieving factors. Patient last consumed alcohol 2 days prior to presentation. Does have a history of alcohol withdrawal but states she does not feel like she will withdraw this time. Continues to smoke cigarettes. Also has associated nausea and vomiting with the abdominal pain. No hematemesis, fever, chills, diarrhea. No chest discomfort, palpitations, shortness of breath, changes in urinary or bowel habits. In the emergency department, imaging with acute pancreatitis. Patient was resuscitated with IV crystalloids and given IV morphine for analgesia Review of Systems 2 Cardiovascular: Cardiovascular: Reports no additional cardiovascular complaints Respiratory: Respiratory: Reports no additional respiratory complaints Gastrointestinal: Gastrointestinal: Reports abdominal pain, Reports nausea and Reports vomiting Genitourinary: Genitourinary: Reports no additional female genitourinary complaints [facility] Medical History Critical polytrauma Pancreatitis Pertinent family history: No family history of early CAD Surgical History History of open heart surgery Social History Household Members: None Housing: Apartment Do you presently have visiting nurse or other home services: No Alcohol intake: current Alcohol intake frequency: 0-2 drinks per day Alcohol type: hard liquor Comment: refusing alarm and camera Patient Tobacco Use Status: Current everyday Tobacco user Tobacco use type: Cigarette Cigarettes Per Day: 5 Years Smoked: 2 Smoked in Last 30 Days: Yes Second Hand Smoke Exposure: No Use of substances other than those prescribed or required for medical reasons: Yes Substance Use Type: Marijuana Substance Use Frequency: Daily Advance Directives: No Advance Directives Information Provided: No Do you have a plan to hurt others: No Plan service: No Meds Allergies Allergy/AdvReac Type Severity Reaction Status Date / Time No Known Allergies Allergy Verified 11/06/23 23:12 Home Medications ?Medication ?Instructions ?Recorded ?Confirmed ?Last Taken ?Type emtricitabine 200 mg-tenofovir 1 tab PO DAILY HIV Protection 05/15/23 07/08/23 07/06/23 History disoproxil fumarate 300 mg tablet ibuprofen 600 mg tablet 600 mg PO Q6H PRN pain 05/15/23 07/08/23 07/06/23 History levonorgestrel-ethinyl estradiol 1 tab PO DAILY 05/15/23 07/08/23 07/06/23 History 0.1 mg-20 mcg tablet (Sronyx) Physical Exam 2 Vital Signs and Narrative: Vital Signs: Last Vital Signs Temp 97.6 F 11/07/23 05:27 Pulse 69 11/07/23 05:42 Resp 16 11/07/23 05:42 BP 150/85 H 11/07/23 05:27 Pulse Ox 100 11/07/23 05:42 O2 Del Method Room Air 11/07/23 05:42 BMI result Body Mass Index 35.4 Middle-aged female lying in bed in no distress Neck supple, no JVD Regular rate and rhythm, S1-S2 heard Regular breath sounds bilaterally, no wheezing or crackles appreciated Abdomen with epigastric tenderness, no rigidity, no rebound tenderness Patient is awake, alert and oriented to self, place, time and person ; no focal motor deficit Psych: Normal mood No pedal edema Results Labs 11/06/23 23:31 11/06/23 23:31 Labs: Laboratory Results - last 24 hr 11/06/23 11/07/23 11/07/23 23:31 02:00 Unknown MCV 98.7 H MCH 34.4 H MCHC 34.9 RDW 14.8 Plt Count 225 MPV 9.0 L Immature Gran % (Auto) 0.5 H Neut % (Auto) 58.9 Lymph % (Auto) 32.0 [place] % (Auto) 7.9 Eos % (Auto) 0.2 Baso % (Auto) 0.5 Lymph # (Auto) 1.4 [place] # (Auto) 0.4 Eos # (Auto) 0.0 Baso # (Auto) 0.0 Abs Immat Gran (auto) 0.02 Absolute Neuts (auto) 2.6 Absolute Nucleated RBC 0.000 Nucleated RBC % (auto) 0.0 Anion Gap 17 Estim Creat Clear Calc 129.7 Estimated GFR > 60 Random Glucose 82 Calcium 9.5 D Magnesium 1.9 Total Bilirubin 1.0 AST 65 H ALT 50 H Alkaline Phosphatase 79 Troponin I High Sens < 2.7 Total Protein 7.6 Albumin 4.2 Triglycerides 76 Lipase 95 H Urine Color Dark Yellow Urine Appearance Cloudy Urine pH 7.5 Ur Specific [place] 1.025 Urine Protein 30 (1+) H Urine Glucose (UA) Negative Urine Ketones 15 Urine Blood Trace H Urine Nitrite Negative Ur Leukocyte Esterase Trace H Urine RBC 6-10 H Urine WBC 6-10 H Ur Squamous Epith Cells >20 Urine Bacteria 4+ Hyaline Casts 6-10 Granular Casts Present Urine Test NEGATIVE Ethyl Alcohol 49 Imaging Radiologist's Impressions: Impressions Knee X-Ray 11/06/23 23:54 IMPRESSION: Normal left knee. Knee X-Ray 11/06/23 23:54 IMPRESSION: Large joint effusion Abdomen/Pelvis CT 11/07/23 03:45 IMPRESSION: 1. Acute pancreatitis as described above. 2. Scattered pancreatic calcifications, suspicious for underlying changes of chronic pancreatitis. 3. Hepatic steatosis. Assessment and Plan (1) Acute alcoholic pancreatitis: Status: Acute Plan This is a 28-year-old female with pertinent history of alcohol use disorder with history of alcoholic pancreatitis, tobacco use disorder who presents to the emergency department for evaluation of abdominal pain. #. Acute alcoholic pancreatitis: Will admit patient and continue IV crystalloid resuscitation. IV opioid p.r.n. for analgesia. Counseled regarding alcohol cessation. NPO for bowel rest. Triglyceride normal #. Alcohol use disorder: Monitor CIWA. Initiating thiamine and folic acid. Consulting Addiction Team #. Elevated liver enzymes due to alcohol use #. Tobacco use disorder: Counseled regarding cessation. Nicotine patch while in the hospital #. Asymptomatic bacteriuria: Defer treatment #. Right knee joint effusion due to fall: Conservative management and outpatient follow up Med rec pending DVT prophylaxis: Lovenox Full code Admit as inpatient and will require two night minimum hospital stay for IV opiates, IV crystalloid resuscitation, management of acute pancreatitis (as above), which is not possible in a lesser acute setting. Specialist consult pending Quality Stroke Does the patient have a stroke diagnosis?: No VTE Prior VTE?: No VTE Risk Level:: Medical - moderate - high VTE Device Contraindication: Treatment Not Indicated VTE Drug Contraindication: N/A - Med Ordered
[2023-11-07] MEDS: Lactated Ringers 1,000 ML 125 ML IVCONT ×3 (06:20→21:59)
--- NOTE | 2023-11-07 07:05 | PC.NURSE ---
report given to Malena JARQUIN
--- NOTE | 2023-11-07 08:17 | PHA.MEDREC ---
Addendum entered by Anil Enciso [facility] 11/07/23 09:23: double checked by [facility] Original Note: Pharmacy Consult ? Medication Reconciliation Pharmacy has completed the medication reconciliation. Spoke with patient to confirm medications. Her last fill date for generic Truvada was 04/08/23 and said she has not been taking it recently, last had it a few weeks ago. She does not use anything for constipation or acid reflux. She only confirmed use of control and ibuprofen prn for pain.
[2023-11-07] MEDS: Nicotine 14 MG PATCH.TD24 TRANSDERMA (08:30)
[2023-11-07] MEDS: Thiamine HCL 100 MG in 0.9 % Sodium Chloride 100 ML 202 MG IV (08:30)
[2023-11-07] MEDS: Folic Acid 1 MG in 0.9 % Sodium Chloride 50 ML 100.4 MG IV (08:30)
[2023-11-07] MEDS: Enoxaparin Sodium 40 MG/0.4 ML SYRINGE SUBCUT (08:31)
--- NOTE | 2023-11-07 08:48 | HO.PM.IMPN ---
Subjective Subjective Date of Service: 11/07/23 Interval History: abd pain, not ready to eat, no withdrawal Physical Exam Vital Signs: Vital Signs: Last Vital Signs Temp 97.6 F 11/07/23 05:27 Pulse 69 11/07/23 05:42 Resp 16 11/07/23 05:42 BP 150/85 H 11/07/23 05:27 Pulse Ox 100 11/07/23 05:42 O2 Del Method Room Air 11/07/23 05:42 BMI result Body Mass Index 35.4 General: AO X 3, no acute distress Resp: CTA bilateral, no accessory muscles used CVS: S1,S2,RRR GI: soft, tender, non distended Neuro: motor grossly intact, alert Psych: appropriate affect, appropriate insight Objective Data Active Medications Acetaminophen (Acetaminophen 325 Mg Tablet) 650 mg PO Q6H PRN PRN Reason: Pain, Mild (Pain Scale 1-3), fever or headache Calcium Carbonate (Calcium Carbonate 750 Mg Tab.Chew) 750 mg PO Q4H PRN PRN Reason: Heartburn Enoxaparin Sodium (Enoxaparin Sodium 40 Mg/0.4 Ml Syringe) 40 mg SUBCUT Q24H [facility] Last Admin: 11/07/23 08:31 Dose: 40 mg Documented By: STEPHEN Lactated Ringer's (Lr) 1,000 mls @ 125 mls/hr IVCONT .Q8H [facility] Last Admin: 11/07/23 06:20 Dose: 125 mls/hr Documented By: WOODY Thiamine HCl 100 mg/ Sodium (Chloride) 101 mls @ 202 mls/hr IV DAILY [facility] Last Admin: 11/07/23 08:30 Dose: 202 mls/hr Documented By: STEPHEN Folic Acid 1 mg/ Sodium (Chloride) 50.2 mls @ 100.4 mls/hr IV DAILY [facility] Last Admin: 11/07/23 08:30 Dose: 100.4 mls/hr Documented By: STEPHEN Magnesium Hydroxide (Milk Of Magnesia 30 Ml Oral.Susp) 30 ml PO DAILY PRN PRN Reason: Constipation Melatonin (Melatonin 3 Mg Tablet) 6 mg PO BEDTIME PRN PRN Reason: Insomnia Morphine Sulfate (Morphine Sulfate 4 Mg/Ml Cartridge) 4 mg IVPUSH Q4H PRN; Protocol PRN Reason: Pain, Severe (Pain Scale 7-10) Last Admin: 11/07/23 08:43 Dose: 4 mg Documented By: STEPHEN Nicotine (Nicotine 14 Mg Patch.Td24) 14 mg TRANSDERMA DAILY [facility] Last Admin: 11/07/23 08:30 Dose: 14 mg Documented By: STEPHEN Ondansetron HCl (Ondansetron Hcl 4 Mg/2 Ml Vial) 4 mg IVPUSH Q8H PRN PRN Reason: Nausea and Vomiting Sodium Chloride (0.9 % Sodium Chloride Flush 3 Ml Syringe) 3 ml IVFLUSH QSHIFT [facility] Last Admin: 11/07/23 07:04 Dose: Not Given Documented By: STEPHEN Non-Admin Reason: IV Running Labs 11/06/23 23:31 11/06/23 23:31 Labs: Laboratory Results - last 24 hr 11/06/23 11/07/23 11/07/23 23:31 02:00 05:36 MCV 98.7 H MCH 34.4 H MCHC 34.9 RDW 14.8 Plt Count 225 MPV 9.0 L Immature Gran % (Auto) 0.5 H Neut % (Auto) 58.9 Lymph % (Auto) 32.0 [place] % (Auto) 7.9 Eos % (Auto) 0.2 Baso % (Auto) 0.5 Lymph # (Auto) 1.4 [place] # (Auto) 0.4 Eos # (Auto) 0.0 Baso # (Auto) 0.0 Abs Immat Gran (auto) 0.02 Absolute Neuts (auto) 2.6 Absolute Nucleated RBC 0.000 Nucleated RBC % (auto) 0.0 Anion Gap 17 Estim Creat Clear Calc 129.7 Estimated GFR > 60 Random Glucose 82 Calcium 9.5 D Magnesium 1.9 Total Bilirubin 1.0 AST 65 H ALT 50 H Alkaline Phosphatase 79 Troponin I High Sens < 2.7 Total Protein 7.6 Albumin 4.2 Triglycerides 76 Lipase 95 H Urine Color Dark Yellow Urine Appearance Cloudy Urine pH 7.5 Ur Specific [place] 1.025 Urine Protein 30 (1+) H Urine Glucose (UA) Negative Urine Ketones 15 Urine Blood Trace H Urine Nitrite Negative Ur Leukocyte Esterase Trace H Urine RBC 6-10 H Urine WBC 6-10 H Ur Squamous Epith Cells >20 Urine Bacteria 4+ Hyaline Casts 6-10 Granular Casts Present Urine Test NEGATIVE Ethyl Alcohol 49 Assessment and Plan (1) Acute alcoholic pancreatitis: Status: Acute Plan 28F PMH etoh dependence presented wiht abd pain acute etoh pancreatitis continue ivf, npo (advance as tolerated), iv opiates etoh dependence monitor ciwa dvt prophylaxis - lovenox full code reason for continued hospitalization:not toelrating po Quality Stroke Does the patient have a stroke diagnosis?: No VTE Prior VTE?: No VTE Risk Level:: Medical - moderate - high VTE Device Contraindication: Treatment Not Indicated VTE Drug Contraindication: N/A - Med Ordered
--- NOTE | 2023-11-07 08:50 | PC.NURSE ---
this RN resumed care of pt at 0645. a&ox4. vss and up to date. pt reporting 10/10 abd pain at this time. PRN medication utilized. effectiveness pending. morning medication also administered per provider order. nicotine patch applied to pt's left shoulder. updated CIWA = 2. admitting provider bedside/assessing pt at this time. per dr. coppola, pt is able to intake ice chips/water PO if she would like. dr. coppola also states pt does not need to be NPO if she is able to tolerate food intake. pt reports not being hungry at this time. pt continues to wait for bed assignment at this time. resting w/ lights dimmed/in no apparent distress. no sob/wob noted. respirations even/unlabored. plan of care ongoing. call nunez placed within reach.
--- NOTE | 2023-11-07 12:49 | PC.NURSE ---
pt reporting increase in abd pain - prn medication utilized.
[2023-11-07] MEDS: Acetaminophen 325 MG TABLET 650 MG PO (18:33)
[2023-11-07] MEDS: 0.9 % Sodium Chloride Flush 3 ML SYRINGE IVFLUSH (22:01)
[2023-11-08] MEDS: Morphine Sulfate 4 MG/ML CARTRIDGE IVPUSH ×6 (00:49→23:25)
[2023-11-08 03:33] VITALS: BP 152/88; PULSE 77; RESP 18; TEMP 36.5; O2SAT 98
--- NOTE | 2023-11-08 05:55 | PC.NURSE ---
Pt AOx4, able to make needs known. Pt continues to c/o 12/13 ABD pain. States the morphine only works for about an hour and then the pain increases again. She is able to ambulate to the bathroom independently. Call nunez within reach, safety maintained throughout shift.
[2023-11-08 07:11] LABS: MANUAL DIFF FLAG NO
[2023-11-08 07:13] VITALS: BP 180/100; PULSE 76; RESP 16; TEMP 37.4; O2SAT 97
[2023-11-08] MEDS: Lactated Ringers 1,000 ML 125 ML IVCONT ×2 (07:19→17:10)
[2023-11-08 07:22] LABS: Basophils Percent Auto 0.5 % (0-2); Eosinophils Absolute Auto 0.1 X10*3/uL (0.0-0.4); Eosinophils Percent Auto 1.3 % (0-4); Hematocrit 35.7 % (37.0-47.0); Hemoglobin 12.2 g/dl (12.0-16.0); Imm Gran Abs Auto 0.01 X10*3/uL (0.00-0.03); Imm Gran Pct Auto 0.3 % (0.0-0.4); Lymphocytes Absolute Auto 1.3 X10*3/uL (1.2-4.9); Lymphocytes Percent Auto 35.8 % (20-40); Mean Corpuscular HGB Conc 34.2 g/dl (31.0-35.0); Mean Corpuscular Volume 99.4 fL (80.0-98.0); Mean Platelet Volume 9.8 fL (9.4-12.3); Monocytes Absolute Auto 0.3 X10*3/uL (0.1-1.2); Monocytes Percent Auto 8.4 % (2-11); Neutrophils Percent Auto 53.7 % (45-73); Platelet Count 199 X10*3/uL (160-400); Red Blood Count 3.59 X10*6/uL (4.20-5.50); Red Cell Distribution Width 13.8 % (11.0-16.0); White Blood Count 3.7 X10*3/uL (4.8-10.8)
[2023-11-08 07:37] LABS: Alanine Aminotransferase 33 U/L (0-31); Albumin Level 3.6 g/dL (3.5-5.0); Alkaline Phosphatase 74 U/L (39-117); Anion Gap 17 (12-20); Aspartate Amino Transferase 33 U/L (5-31); Bilirubin Direct 0.3 mg/dL (0.0-0.5); Blood Urea Nitrogen 3 mg/dL (9-16); Calcium 9.5 mg/dL (8.4-10.2); Carbon Dioxide 26 mmol/L (22-29); Chloride 97 mmol/L (96-108); Creatinine Clr Calc Pharmacy 156.5; Estimated Glomerular Filt Rate > 60; Glucose Fasting 66 mg/dL (60-99); Magnesium 1.5 mg/dL (1.6-2.6); Potassium 3.2 mmol/L (3.3-5.1); Sodium 137 mmol/L (135-145); Total Protein 6.6 g/dL (6.5-8.0)
--- NOTE | 2023-11-08 08:30 | P.PNIM_ITS ---
Subjective Subjective Date of Service: 11/08/23 Interval History: still with pain, but thirsty wants to try clears Physical Exam 2 Vital Signs: Vital Signs: Last Vital Signs Temp 99.3 F 11/08/23 07:13 Pulse 76 11/08/23 07:13 Resp 16 11/08/23 07:13 BP 180/100 H 11/08/23 07:13 Pulse Ox 97 11/08/23 07:13 O2 Del Method Room Air 11/08/23 07:13 BMI result Body Mass Index 35.2 General: AO X 3, no acute distress Resp: CTA bilateral, no accessory muscles used CVS: S1,S2,RRR GI: soft, tender, non distended Neuro: motor grossly intact, alert Psych: appropriate affect, appropriate insight Objective Data Active Medications Acetaminophen (Acetaminophen 325 Mg Tablet) 650 mg PO Q6H PRN PRN Reason: Pain, Mild (Pain Scale 1-3), fever or headache Last Admin: 11/07/23 18:33 Dose: 650 mg Documented By: BRIANA Calcium Carbonate (Calcium Carbonate 750 Mg Tab.Chew) 750 mg PO Q4H PRN PRN Reason: Heartburn Enoxaparin Sodium (Enoxaparin Sodium 40 Mg/0.4 Ml Syringe) 40 mg SUBCUT Q24H [facility] Last Admin: 11/07/23 08:31 Dose: 40 mg Documented By: STEPHEN Lactated Ringer's (Lr) 1,000 mls @ 125 mls/hr IVCONT .Q8H [facility] Last Admin: 11/08/23 07:19 Dose: 125 mls/hr Documented By: DANIEL Thiamine HCl 100 mg/ Sodium (Chloride) 101 mls @ 202 mls/hr IV DAILY [facility] Last Infusion: 11/07/23 09:11 Dose: Infused Documented By: STEPHEN Folic Acid 1 mg/ Sodium (Chloride) 50.2 mls @ 100.4 mls/hr IV DAILY [facility] Last Infusion: 11/07/23 09:11 Dose: Infused Documented By: STEPHEN Magnesium Hydroxide (Milk Of Magnesia 30 Ml Oral.Susp) 30 ml PO DAILY PRN PRN Reason: Constipation Magnesium Oxide (Magnesium Oxide 400 Mg Tablet) 400 mg PO TID MAU Melatonin (Melatonin 3 Mg Tablet) 6 mg PO BEDTIME PRN PRN Reason: Insomnia Morphine Sulfate (Morphine Sulfate 4 Mg/Ml Cartridge) 4 mg IVPUSH Q4H PRN; Protocol PRN Reason: Pain, Severe (Pain Scale 7-10) Last Admin: 11/08/23 05:22 Dose: 4 mg Documented By: ALINA Nicotine (Nicotine 14 Mg Patch.Td24) 14 mg TRANSDERMA DAILY [facility] Last Admin: 11/07/23 08:30 Dose: 14 mg Documented By: STEPHEN Ondansetron HCl (Ondansetron Hcl 4 Mg/2 Ml Vial) 4 mg IVPUSH Q8H PRN PRN Reason: Nausea and Vomiting Sodium Chloride (0.9 % Sodium Chloride Flush 3 Ml Syringe) 3 ml IVFLUSH QSHIFT [facility] Last Admin: 11/08/23 07:21 Dose: Not Given Documented By: DANIEL Non-Admin Reason: IV Running Labs 11/08/23 05:35 11/08/23 05:35 Labs: Laboratory Results - last 24 hr 11/08/23 05:35 MCV 99.4 H MCH 34.0 H MCHC 34.2 RDW 13.8 Plt Count 199 MPV 9.8 Immature Gran % (Auto) 0.3 Neut % (Auto) 53.7 Lymph % (Auto) 35.8 Kinney % (Auto) 8.4 Eos % (Auto) 1.3 Baso % (Auto) 0.5 Lymph # (Auto) 1.3 Kinney # (Auto) 0.3 Eos # (Auto) 0.1 Baso # (Auto) 0.0 Abs Immat Gran (auto) 0.01 Absolute Neuts (auto) 2.0 Absolute Nucleated RBC 0.000 Nucleated RBC % (auto) 0.0 Anion Gap 17 Estim Creat Clear Calc 156.5 Estimated GFR > 60 Fasting Glucose 66 Calcium 9.5 Magnesium 1.5 L Total Bilirubin 1.0 Direct Bilirubin 0.3 AST 33 H ALT 33 H Alkaline Phosphatase 74 Total Protein 6.6 Albumin 3.6 Microbiology Microbiology Results: Microbiology 11/07/23 Unknown Urine Culture - Final Urine clean catch - Clean Catch Midstream Assessment and Plan (1) Acute alcoholic pancreatitis: Status: Acute Plan 28F PMH etoh dependence presented with abd pain acute etoh pancreatitis advance to clears, continue ivf and pain meds etoh dependence monitor ciwa, no significant withdrawal so far old prescription for truvada noted was prophylactic not for treatment dvt prophylaxis - lovenox full code reason for continued hospitalization:not tolerating po Quality Stroke Does the patient have a stroke diagnosis?: No VTE Prior VTE?: No VTE Risk Level:: Medical - moderate - high VTE Device Contraindication: Treatment Not Indicated VTE Drug Contraindication: N/A - Med Ordered
[2023-11-08] MEDS: Folic Acid 1 MG in 0.9 % Sodium Chloride 50 ML 100.4 MG IV (09:11)
[2023-11-08] MEDS: Enoxaparin Sodium 40 MG/0.4 ML SYRINGE SUBCUT (09:11)
[2023-11-08] MEDS: Potassium Chloride ER 20 MEQ TAB.ER.PRT 40 MEQ PO (09:11)
[2023-11-08] MEDS: Magnesium Oxide 400 MG TABLET PO ×3 (09:11→19:27)
[2023-11-08] MEDS: Nicotine 14 MG PATCH.TD24 TRANSDERMA (09:11)
--- NOTE | 2023-11-08 09:18 | P.CDIM_ITS ---
PROVIDER RESPONSE TEXT: To clarify, the appropriate diagnosis supported by the clinical indicators: Obesity Due to excess calories QUERY TEXT: PHYSICIAN'S DOCUMENTATION REQUEST Date of Query: 11/08/2023 09:11 AM EDT Patient Name: Tia Lafleur Admit Date: 11/07/2023 Dear Francisco Tyson MD, A review of the medical record indicates additional documentation may be needed. Please review below and update the documentation accordingly. Clinical Indicators: Height: 5ft 3in Weight: 90.1kg BMI: 35.2 Other Clinical Notes Supporting Significance of the BMI: Nursing notes Height and Weight: Obese class II If possible, please provide an associated diagnosis related to the abnormal BMI, such as: Obesity Due to excess calories Obesity Drug induced Obesity Due to other cause Specify the other cause Other (explain) Clinically unable to determine (explain) Thank you, Oneyda DeL a Paz, CCS, CDIS Use of terms such as suspected, likely, concern for, or probable (associated with a specific diagnosi s that is being evaluated, monitored, or treated as if it exists) are acceptable and can be coded in the inpatient se tting, when documented at the time of discharge. Please use your independent medical judgment in providing your response. THIS QUERY IS PART OF THE PERMANENT MEDICAL RECORD
--- NOTE | 2023-11-08 09:20 | MHC.CM.PN ---
PT REPORTS SHE LIVES ALONE AND IS INDEPENDENT WITH CARE SHE HAS NO SERVICES AND NO DME PT DECLINES TO COMPLETE A HCP PCP: REINIER ANTUNEZ DCP: HOME NO SERVICES PT UNSURE IF SHE WILL HAVE A RIDE, MAY NEED SHUTTLE
[2023-11-08] MEDS: Thiamine HCL 100 MG in 0.9 % Sodium Chloride 100 ML 202 MG IV (09:46)
[2023-11-08 15:07] VITALS: BP 140/97; PULSE 76; RESP 18; TEMP 36.6; O2SAT 98
[2023-11-08] MEDS: 0.9 % Sodium Chloride Flush 3 ML SYRINGE IVFLUSH (19:27)
[2023-11-08 19:28] VITALS: BP 155/96; PULSE 83; RESP 18; TEMP 36.6; O2SAT 98
[2023-11-08] MEDS: Acetaminophen 325 MG TABLET 650 MG PO (21:28)
[2023-11-09] MEDS: Lactated Ringers 1,000 ML 125 ML IVCONT (02:27)
[2023-11-09] MEDS: Morphine Sulfate 4 MG/ML CARTRIDGE IVPUSH ×5 (03:32→19:53)
[2023-11-09 03:47] VITALS: BP 145/94; PULSE 67; RESP 16; TEMP 36.9; O2SAT 97
--- NOTE | 2023-11-09 05:58 | PC.NURSE ---
Pt continues to c/o 8 or 9/10 ABD pain. See MAR for medication administration. She remains AOx4, able to make her needs known. She is ambulating independently to the bathroom, refusing bed alarms. Call nunez within reach.
[2023-11-09 07:07] LABS: Hematocrit 35.8 % (37.0-47.0); Hemoglobin 12.5 g/dl (12.0-16.0); Mean Corpuscular HGB Conc 34.9 g/dl (31.0-35.0); Mean Corpuscular Hemoglobin 34.6 pg (27.0-33.0); Mean Corpuscular Volume 99.2 fL (80.0-98.0); Mean Platelet Volume 9.4 fL (9.4-12.3); Platelet Count 196 X10*3/uL (160-400); Red Blood Count 3.61 X10*6/uL (4.20-5.50); Red Cell Distribution Width 13.6 % (11.0-16.0); White Blood Count 2.7 X10*3/uL (4.8-10.8)
[2023-11-09 07:15] VITALS: BP 146/97; PULSE 89; RESP 16; TEMP 36.2; O2SAT 98
[2023-11-09 07:19] LABS: Anion Gap 12 (12-20); Blood Urea Nitrogen < 3 mg/dL (9-16); Calcium 9.5 mg/dL (8.4-10.2); Carbon Dioxide 28 mmol/L (22-29); Chloride 100 mmol/L (96-108); Creatinine Clr Calc Pharmacy 156.5; Estimated Glomerular Filt Rate > 60; Glucose Fasting 99 mg/dL (60-99); Magnesium 1.7 mg/dL (1.6-2.6); Potassium 3.4 mmol/L (3.3-5.1); Sodium 137 mmol/L (135-145)
[2023-11-09] MEDS: Magnesium Oxide 400 MG TABLET PO ×3 (07:40→19:53)
[2023-11-09] MEDS: Nicotine 14 MG PATCH.TD24 TRANSDERMA (07:40)
[2023-11-09] MEDS: Enoxaparin Sodium 40 MG/0.4 ML SYRINGE SUBCUT (07:41)
[2023-11-09] MEDS: 0.9 % Sodium Chloride Flush 3 ML SYRINGE IVFLUSH ×2 (07:41→16:02)
[2023-11-09] MEDS: Thiamine HCL 100 MG in 0.9 % Sodium Chloride 100 ML 202 MG IV (07:41)
--- NOTE | 2023-11-09 09:12 | HO.PM.IMPN ---
Subjective Subjective Date of Service: 11/09/23 Interval History: ready for solids Physical Exam Vital Signs: Vital Signs: Last Vital Signs Temp 97.1 F 11/09/23 07:15 Pulse 89 11/09/23 07:15 Resp 16 11/09/23 07:15 BP 146/97 H 11/09/23 07:15 Pulse Ox 98 11/09/23 07:15 O2 Del Method Room Air 11/09/23 07:15 BMI result Body Mass Index 35.2 General: AO X 3, no acute distress Resp: CTA bilateral, no accessory muscles used CVS: S1,S2,RRR GI: soft, tender, non distended Neuro: motor grossly intact, alert Psych: appropriate affect, appropriate insight Objective Data Active Medications Acetaminophen (Acetaminophen 325 Mg Tablet) 650 mg PO Q6H PRN PRN Reason: Pain, Mild (Pain Scale 1-3), fever or headache Last Admin: 11/08/23 21:28 Dose: 650 mg Documented By: ALINA Calcium Carbonate (Calcium Carbonate 750 Mg Tab.Chew) 750 mg PO Q4H PRN PRN Reason: Heartburn Enoxaparin Sodium (Enoxaparin Sodium 40 Mg/0.4 Ml Syringe) 40 mg SUBCUT Q24H [facility] Last Admin: 11/09/23 07:41 Dose: 40 mg Documented By: ODILIA Thiamine HCl 100 mg/ Sodium (Chloride) 101 mls @ 202 mls/hr IV DAILY [facility] Last Infusion: 11/09/23 08:28 Dose: Infused Documented By: ODILIA Folic Acid 1 mg/ Sodium (Chloride) 50.2 mls @ 100.4 mls/hr IV DAILY [facility] Last Infusion: 11/08/23 09:51 Dose: Infused Documented By: DANIEL Magnesium Hydroxide (Milk Of Magnesia 30 Ml Oral.Susp) 30 ml PO DAILY PRN PRN Reason: Constipation Magnesium Oxide (Magnesium Oxide 400 Mg Tablet) 400 mg PO TID [facility] Last Admin: 11/09/23 07:40 Dose: 400 mg Documented By: ODILIA Melatonin (Melatonin 3 Mg Tablet) 6 mg PO BEDTIME PRN PRN Reason: Insomnia Morphine Sulfate (Morphine Sulfate 4 Mg/Ml Cartridge) 4 mg IVPUSH Q4H PRN; Protocol PRN Reason: Pain, Severe (Pain Scale 7-10) Last Admin: 11/09/23 07:39 Dose: 4 mg Documented By: ODILIA Nicotine (Nicotine 14 Mg Patch.Td24) 14 mg TRANSDERMA DAILY [facility] Last Admin: 11/09/23 07:40 Dose: 14 mg Documented By: ODILIA Ondansetron HCl (Ondansetron Hcl 4 Mg/2 Ml Vial) 4 mg IVPUSH Q8H PRN PRN Reason: Nausea and Vomiting Sodium Chloride (0.9 % Sodium Chloride Flush 3 Ml Syringe) 3 ml IVFLUSH QSHIFT [facility] Last Admin: 11/09/23 07:41 Dose: 3 ml Documented By: ODILIA Labs 11/09/23 06:47 11/09/23 06:47 Labs: Laboratory Results - last 24 hr 11/09/23 06:47 MCV 99.2 H MCH 34.6 H MCHC 34.9 RDW 13.6 Plt Count 196 MPV 9.4 Absolute Nucleated RBC 0.000 Nucleated RBC % (auto) 0.0 Anion Gap 12 Estim Creat Clear Calc 156.5 Estimated GFR > 60 Fasting Glucose 99 Calcium 9.5 Magnesium 1.7 Microbiology Microbiology Results: Microbiology 11/07/23 Unknown Urine Culture - Final Urine clean catch - Clean Catch Midstream Assessment and Plan (1) Acute alcoholic pancreatitis: Status: Acute Plan 28F PMH etoh dependence presented with abd pain acute etoh pancreatitis advance to solids etoh dependence monitor ciwa, no significant withdrawal so far old prescription for truvada noted was prophylactic not for treatment dvt prophylaxis - lovenox full code reason for continued hospitalization:awaiting po solid tolerance Quality Stroke Does the patient have a stroke diagnosis?: No VTE Prior VTE?: No VTE Risk Level:: Medical - moderate - high VTE Device Contraindication: Treatment Not Indicated VTE Drug Contraindication: N/A - Med Ordered
[2023-11-09] MEDS: Folic Acid 1 MG in 0.9 % Sodium Chloride 50 ML 100.4 MG IV (10:43)
[2023-11-09] MEDS: Acetaminophen 325 MG TABLET 650 MG PO ×2 (14:12→23:27)
[2023-11-09] MEDS: ondansetron HCL 4 MG/2 ML VIAL IVPUSH (14:17)
[2023-11-09 15:09] VITALS: BP 156/92; PULSE 72; RESP 18; TEMP 36.6; O2SAT 98
[2023-11-09 19:08] VITALS: BP 139/96; PULSE 78; RESP 18; TEMP 36.3; O2SAT 98
[2023-11-09 23:48] VITALS: BP 143/89; PULSE 81; RESP 18; TEMP 36.4; O2SAT 99
[2023-11-10] MEDS: Morphine Sulfate 4 MG/ML CARTRIDGE IVPUSH ×4 (00:02→12:23)
[2023-11-10] MEDS: 0.9 % Sodium Chloride Flush 3 ML SYRINGE IVFLUSH ×2 (00:03→08:22)
--- NOTE | 2023-11-10 07:31 | PC.NURSE ---
Pt witnessed entering elevator by [employer]. Security called to assist pt back to room. Stated she wanted to go out to smoke. Counseled pt regarding rules of no smoking on hospital grounds and safety concerns of leaving the building. Offered nicotine patch. Nsg supervisor landscape aware. Attempt to place Camera in room but pt refused.
[2023-11-10 07:39] VITALS: BP 124/82; PULSE 78; RESP 18; TEMP 36.1; O2SAT 98
[2023-11-10] MEDS: Enoxaparin Sodium 40 MG/0.4 ML SYRINGE SUBCUT (08:22)
[2023-11-10] MEDS: Folic Acid 1 MG TABLET PO (08:22)
[2023-11-10] MEDS: Magnesium Oxide 400 MG TABLET PO (08:22)
[2023-11-10] MEDS: Nicotine 14 MG PATCH.TD24 TRANSDERMA (08:22)
[2023-11-10] MEDS: Thiamine HCL 100 MG TABLET PO (08:22)
[2023-11-10] MEDS: ondansetron HCL 4 MG/2 ML VIAL IVPUSH (08:30)
--- NOTE | 2023-11-10 11:39 | PM.DS ---
DS: Providers Provider Date of Service: 11/10/23 Date of admission: 11/07/23 05:53 Primary care physician: Luis Butler MD DS: Diagnosis Discharge Diagnosis (1) Acute alcoholic pancreatitis: Status: Acute (2) Folic acid deficiency: Status: Acute (3) Elevated LFTs: Status: Acute (4) Hypernatremia: Status: Acute (5) Acute hypokalemia: Status: Acute (6) Hypomagnesemia: Status: Acute DS: Summary Hospital Course Hospital Course: Admission note HPI This is a 28-year-old female with pertinent history of alcohol use disorder with history of alcoholic pancreatitis, tobacco use disorder who presents to the emergency department for evaluation of abdominal pain. Patient states it started 1 day prior to presentation. She has been having epigastric pain that is intermittent and radiating to the back. It is been progressive for the last 1 day and without any relieving factors. Patient last consumed alcohol 2 days prior to presentation. Does have a history of alcohol withdrawal but states she does not feel like she will withdraw this time. Continues to smoke cigarettes. Also has associated nausea and vomiting with the abdominal pain. No hematemesis, fever, chills, diarrhea. No chest discomfort, palpitations, shortness of breath, changes in urinary or bowel habits. In the emergency department, imaging with acute pancreatitis. Patient was resuscitated with IV crystalloids and given IV morphine for analgesia Hospital course The patient was admitted for acute alcohol pancreatitis as confirmed by CT scan of abdomen with hepatic steatosis and the look of chronic pancreatitis with calcifications scattered in pancrease. Treated with IV fluids, anti-emetic and pain medications with good response as diet was advanced gradually with good tolerance. Monitered on ciwa with no significant withdrawal symptoms to be treated. advised total abstinence from alcohol. Advised to quit smoking and provided with NRT. Right Knee XR showed effusion after sustaining a fall. was able to ambulate. pain under fair control. outpatient follow up. Given supplement of Magnesium, Folate and Thiamine. Asymptomatic bacteriuria: Defer treatment Noticed to have old prescription for truvada. It seems it was prophylactic not for treatment. Discharge plan Avoid Alcohol Quit smoking; nicotine patches provided Supplement of Magnesium, Folate and Thiamine. Drink plenty of fluids Advance diet slowly over the next few days; avoid high protein\high fat diet Time Attestation Discharge Coordination Time (in mins): 38 Quality: Safe Use of Opioids Does Pt have an Active Cancer Diagnosis on the Problem List?: No Quality: Stroke Does the patient have a stroke diagnosis?: No Physical Exam Vital Signs: Vital Signs: Last Vital Signs Temp 97.0 F 11/10/23 07:39 Pulse 78 11/10/23 07:39 Resp 18 11/10/23 07:39 BP 124/82 11/10/23 07:39 Pulse Ox 98 11/10/23 07:39 O2 Del Method Room Air 11/10/23 07:39 BMI result Body Mass Index 35.2 Const: Other: Constitutional : Awake, interactive, not in distress Neck : Normal inspection, Supple Cardiovascular : RRR, no JVP, no lower extremity edema Respiratory : good bilateral air entry, no crackles, wheezes or rhonchi Gastrointestinal: soft, lax, Normal bowel sounds, Non tender Skin : Warm, Dry Right knee with small effusion at this time. Neurological : Alert & oriented x3, No focal deficit DS: Data Imaging CT scan - abdomen: Radiologist's impression: ITS Impressions Knee X-Ray 11/06/23 23:54 IMPRESSION: Normal left knee. Knee X-Ray 11/06/23 23:54 IMPRESSION: Large joint effusion Abdomen/Pelvis CT 11/07/23 03:45 IMPRESSION: 1. Acute pancreatitis as described above. 2. Scattered pancreatic calcifications, suspicious for underlying changes of chronic pancreatitis. 3. Hepatic steatosis. Discharge Plan Discharge Anticipated Discharge Date/Time: 11/10/23 11:34 Patient Disposition: Home, Self-Care Discharge Diagnosis: Acute Pancreatitis Referrals: Luis Butler MD [Primary Care Provider] - 1 Week Discharge Medications: New nicotine 14 mg/24 hr Patch 24 Hour 14 mg transdermal DAILY Qty: 20 1RF folic acid 1 mg Tablet 1 mg PO DAILY Qty: 90 0RF thiamine mononitrate (vit B1) 100 mg Tablet 100 mg PO DAILY Qty: 90 0RF magnesium oxide 400 mg (241.3 mg magnesium) tablet 400 mg PO DAILY Qty: 90 0RF ondansetron 4 mg tablet,disintegrating 4 mg PO Q8H PRN (Reason: nausea and vomiting) Qty: 20 1RF tramadol 100 mg tablet 100 mg PO TID PRN (Reason: pain (scale score 7-10)) Qty: 10 0RF Continued levonorgestrel-ethinyl estrad [Sronyx] 0.1-20 mg-mcg tablet 1 tab PO DAILY ibuprofen 600 mg tablet 600 mg PO Q6H PRN (Reason: pain) Discharge Orders: Discharge Order (Routine); Ordered 11/10/23 Ordered By: Gloria Pizarro Diet: Advance to usual diet Activity on Discharge: As tolerated Stand Alone Forms: Patient Portal Discharge page Print Language: Cook Islander Care Plan Goals: Avoid Alcohol Quit smoking; nicotine patches provided Supplement of Magnesium, Folate and Thiamine. Drink plenty of fluids Advance diet slowly over the next few days; avoid high protein\high fat diet Health Concerns: Read below Plan of Treatment: Read below Assessment: Read below
--- NOTE | 2023-11-10 12:09 | MHC.CM.PN ---
Patient is discharged to home today self care. Patient has arranged for transportation home.
== END 2023-11-10 14:27 | disposition home or self-care (01) | DRG 282 ==
LOC: HO.ED 11-07 05:26 → HO.EDOVER 11-07 06:01 → HO.S3 11-07 16:31
PROVIDERS: Internal Medicine; Admitting Provider Student in an Organized Health Care Education/Training Program; Emergency Provider Emergency Medicine; PCP Emergency Medicine; Visit Provider Student in an Organized Health Care Education/Training Program
DX: K85.20 Alcohol induced acute pancreatitis without necrosis or infection (principal); E87.0 Hyperosmolality and hypernatremia; K76.0 Fatty (change of) liver, not elsewhere classified; E87.6 Hypokalemia; E83.42 Hypomagnesemia; K86.0 Alcohol-induced chronic pancreatitis; E53.8 Deficiency of other specified B group vitamins; E66.09 Other obesity due to excess calories; F10.20 Alcohol dependence, uncomplicated; F17.210 Nicotine dependence, cigarettes, uncomplicated; Z71.6 Tobacco abuse counseling; M25.461 Effusion, right knee; Y90.2 Blood alcohol level of 40-59 mg/100 ml; Z68.35 Body mass index [BMI] 35.0-35.9, adult; W19.XXXA Unspecified fall, initial encounter; Z79.899 Other long term (current) drug therapy
CPT/HCPCS: 36415; 73564; 74177; 80048; 80053; 80076; 80307; 81001; 81025; 83690; 83735; 84478; 84484; 85025; 85027; 87086; 93005; 99221; 99285; J1650; J1790; J2270; J2405; J2470; J3411; J7120; Q9967

== ENCOUNTER → 2023-11-06 23:15 | Outpatient (BNV) | payer OTHER, SELFPAY | PROVIDERS: Admitting Provider Student in an Organized Health Care Education/Training Program; Emergency Provider Emergency Medicine; PCP Emergency Medicine; Visit Provider Internal Medicine Cardiovascular Disease | DX: R10.9 Unspecified abdominal pain (principal) | CPT/HCPCS: 93010 ==

== ENCOUNTER → 2023-11-07 05:53 | Outpatient (BNV) | payer OTHER, SELFPAY | PROVIDERS: Admitting Provider Student in an Organized Health Care Education/Training Program; Emergency Provider Emergency Medicine; PCP Emergency Medicine; Visit Provider Student in an Organized Health Care Education/Training Program | DX: K85.20 Alcohol induced acute pancreatitis without necrosis or infection (principal); E53.8 Deficiency of other specified B group vitamins; R79.89 Other specified abnormal findings of blood chemistry; E87.0 Hyperosmolality and hypernatremia; E87.6 Hypokalemia; E83.42 Hypomagnesemia | CPT/HCPCS: 99222; 99232; 99239; 99499 ==